=== PATIENT | female | born 2005 | race Caucasian/White ===

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

== ENCOUNTER 2024-02-04 23:23 | Emergency (ER) | payer OTHER, SELFPAY ==
[2024-02-04 23:26] VITALS: BP 135/90; PULSE 54; RESP 18; TEMP 36.6; O2SAT 98; BMI 22.5
--- OUTSIDE RECORDS SUMMARY | 2024-02-04 23:40 | XMS_ITS | CCD ---
Author Organization [facility] Care Team Providers Care Pipe Straightener Name Role Phone Manisha Montero Unavailable Asaad, Imad Unavailable Asaad, Imad Admitting Unavailable Asaad, Imad Attending Unavailable Manisha Montero Primary Care Unavailable WINSTON, DR MANISHA Craft Primary Care Unavailable GABRIELLE CANCHOLA Admitting Unavailable GABRIELLE CANCHOLA Attending Unavailable CHAN PETTIT Consulting Unavailable GABRIELLE CANCHOLA Consulting Unavailable WINSTON, DR MANISHA Craft Admitting Unavailable MONTERO, DR MANISHA Craft Attending Unavailable MONTERO, DR MANISHA Craft Primary Care Unavailable MONTERO, DR MANISHA Craft Admitting Unavailable MONTERO, DR MANISHA Craft Attending Unavailable MONTERO, DR MANISHA Craft Primary Care Unavailable MONTERO, DR MANISHA Craft Consulting Unavailable MONTERO, DR MANISHA Craft Admitting Unavailable MONTERO, DR MANISHA Craft Attending Unavailable MONTERO, DR MANISHA Craft Primary Care Unavailable MONTERO, DR MANISHA Craft Consulting Unavailable MONTERO, DR MANISHA Craft Admitting Unavailable MONTERO, DR MANISHA Craft Attending Unavailable MONTERO, DR MANISHA Craft Primary Care Unavailable Braulio Henriquez Consulting Unavailable MONTERO, DR MANISHA Craft Consulting Unavailable WINSTON, DR MANISHA Craft Primary Care Unavailable SADIA NEWBERRY Admitting Unavailable SADIA NEWBERRY Attending Unavailable SADIA NEWBERRY Consulting Unavailable JERSEY LOAIZA Consulting Unavailable WINSTON, DR MANISHA Craft Primary Care Unavailable KRIS Ford, DR SORENSEN Admitting Unavailable KRIS ., DR SORENSEN Attending Unavailable KRIS ., DR SORENSEN Consulting Unavailable AREN MCCOLLUM Consulting Unavailable WINSTON, DR MANISHA Craft Primary Care Unavailable KATIE SUÁREZ Admitting Unavailable KATIE SUÁREZ Attending Unavailable KATIE SUÁREZ Consulting Unavailable KIMBERLY CHOWDHURY Attending Unavailable Medications Current Medications Medication Drug Class(es) Dates Sig (Normalized) Sig (Original) 120 actuat fluticasone propionate 0.115 mg/actuat / salmeterol 0.021 mg/actuat metered dose inhaler (9 sources) Corticosteroid, beta2-Adrenergic Agonist take 2 puff(s) by inhalation once daily Advair HFA 115-21 MCG/ACT 2 puffs Inhalation daily for 30 days Active Advair HFA 230-2 1 MCG/ACT (Prior Auth#:[id number]) Inhalation for 30 Active methylPREDNISolone 4 mg oral tablet (1 source) Corticosteroid Start: 06-09-2023 methylPREDNISo lone 4 MG as directed Orally for 6 days May, Active polyethylene glycol 3350 [id number] mg / potassium chloride 2970 mg / sodium bicarbonate 6740 mg / sodium chloride 5860 mg / sodium sulfate 62178 mg powder for oral solution (2 sources) Osmotic Laxative Start: 02-10-2023 Golytely 236 GM 8oz every 15 minutes Orally at 4pm the day prior to colonoscopy for 1 days Jan, Active Problems Active Problems Problem Classification Problem Date Documented Da te Episodic/Chronic Abdominal pain (7 sources) Unspecified abdominal pain; Translations: [Right upper quadrant pain] Onset: 12-22-2022 Episodic Allergic reactions (1 source) Other allergy, initial encounter Episodic Asthma (9 sources) Asthma; Translations: [Unspecified asthma, uncomplicated] Chronic Cardiac dysrhythmias (3 sources) Irregular heart beat; Translations: [Cardiac arrhythmia, unspecified] Chronic Cardiac dysrhythmias (17 sources) Intermittent palpitations; Translations: [Palpitations] Onset: 11-15-2022 Episodic Diseases of mouth; excluding dental (9 sources) Other lesions of oral mucosa; Translations: [Uvular edema] Episodic Diverticulosis and diverticulitis (12 sources) Diverticulitis; Translations: [Diverticulitis of intestine, part unspecified, without perforation or abscess without bleeding] Onset: 12-24-2022 Chronic Nonmalignant breast conditions (5 sources) Mastodynia; Translations: [MASTODYNIA] Onset: 02-03-2023 Episodic Other aftercare (1 source) Encounter for follow-up examination after completed treatment for conditions other than malignant neoplasm; Translations: [Encounter for follow-up examination after completed treatment for conditions other than malignant neoplasm] Onset: 02-13-2023 Episodic Other gastrointestinal disorders (9 sources) Chronic constipation; Translations: [Other constipation] Episodic Other gastrointestinal disorders (1 source) Other constipation Episodic Other gastrointestinal disorders (6 sources) Constipation; Translations: [Constipation, unspecified] Episodic Other gastrointestinal disorders (6 sources) Constipation, unspecified; Translations: [CONSTIPATION UNSPECIFIED] Onset: 02-02-2023 Episodic Syncope (1 source) Syncope and collapse Episodic Unclassified (1 source) CONTACT W/AND (SUSP) EXPOS COVID-19; Translations: [CONTACT W/AND (SUSP) EXPOS COVID-19] Onset: 05-22-2022 Unclassified (1 source) UNVACCINATED FOR COVID-19; Translations: [UNVACCINATED FOR COVID-19] Onset: 05-22-2022 Past or Other Problems Problem Classification Problem Date Documented Date Episodic/Chronic Fever of unknown origin (4 sources) Fever, unspecified; Translations: [FEVER UNSPECIFIED] Onset: 05-21-2022 Episodic Fluid and electrolyte disorders (1 source) Hypokalemia; Translations: [HYPOKALEMIA] Onset: 05-22-2022 Episodic Noninfectious gastroenteritis (2 sources) Noninfective gastroenteritis and colitis, unspecified; Translations: [NONINFECTIVE GE AND COLITIS UNS] Onset: 12-24-2022 Episodic Other aftercare (1 source) Other snf (current) drug therapy; Translations: [OTH SENIOR LIVING CURRENT DRUG THERAPY] Onset: 12-24-2022 Episodic Other screening for suspected conditions (not mental disorders or infectious disease) (2 sources) Abnormal findings on diagnostic imaging of other abdominal regions, including retroperitoneum; Translations: [ABN FIND DX IMAG OTH AB REGION W/RP] Onset: 12-24-2022 Episodic Viral infection (1 source) Viral infection, unspecified; Translations: [VIRAL INFECTION UNSPECIFIED] Onset: 05-22-2022 Episodic Results Test Name Value Interpretation Reference Range Facility Office Visiton 12-22-2023 Follow-up visit [id number] Julio Black 2005 F Date Provider Department Center 12/22/2023 Almaz-KIMBERLY CHOWDHURY Family History Problem Relation Age of Onset Crohn's disease Father Family Status - Relation Status Age at Father Level of Service:45239 [place] OFFICE/OUTPATIENT NEW LOW MDM 30 MINUTES Normal [facility] CT ABD/PELVIS WO CONon 02-16 CT ABD/PELVIS WO CON EXAM: CT ABD/PELVIS WO CON REASON FOR EXAM: Female, 18 years, UNSPECIFIED ABDOMINAL PAIN. TECHNIQUE: Computed tomography of the abdomen and pelvis is performed in the axial projection from the lung bases to the pubic symphysis. Sagittal and coronal reconstructed images are performed. Dose reduction techniques were achieved by using automated exposure control and/or adjustment of mA and/or KVP according to patient size and/or use of iterative reconstruction technique. Study was performed without IV contrast. Study was performed without oral contrast. COMPARISON: 12/22/2022 FINDINGS: Lung bases: The lung bases are clear. There is no pleural effusion. The visualized portions of the heart are unremarkable. The lack of intravenous contrast slightly limits evaluation of the solid abdominal organs. Liver: The liver is normal. Gallbladder: The gallbladder is normal. Spleen: The spleen is normal. Pancreas: The pancreas is normal. Adrenal glands: The adrenal glands are normal bilaterally. Right kidney: The kidney is normal in size. There is no renal calculus or hydronephrosis. Left kidney: The kidney is normal in size. There is no renal calculus or hydronephrosis. Stomach: The stomach is normal. Small bowel: The small bowel is normal. Large bowel: There is stool throughout the colon consistent with constipation. The previously seen right colon wall thickening has resolved. Appendix: The appendix is not visualized. No right lower quadrant inflammatory changes are seen to suggest acute appendicitis. Aorta: The aorta is normal. IVC: The IVC is normal. Retroperitoneum: Normal retroperitoneum. Bladder: The bladder is normal. Pelvic organs: Normal uterus. Abdominal wall: Normal abdominal wall. Osseous structures: Normal bony structures. IMPRESSION: Constipation. No acute renal pathology. Electronically authenticated by: CHAN PETTIT Date: 2023-02-15 23:32 Normal [facility] HCG,Urineon 02-13-2023 Beta HCG ( test) Ql (U) Negative Normal [facility] Comment on above: Result Comment: PERF ORMED BY: [place] [address] PATHOLOGIST STONE SETTER APPRENTICE CLRAKE LARKIN M.D. Performed By: #### U HCG #### [address] US BREAST BASHIR LIMITEDon 03-2 US BREAST BASHIR LIMITED Patient: JULIO BLACK Exam Date: 02/03/2023 : 2005 Gender:F Ordering : DR MANISHA MONTERO M.D. Admission #: [id number] Family : Order #: [id number] CLICK HERE TO VIEW EXAM RADIOLOGY REPORT PROCEDURE: US BREAST BILATERAL LIMITED COMPARISON: None. INDICATIONS: Pain of breast TECHNIQUE: Breast ultrasound was performed, with evaluation focusing only on specific areas of concern. FINDINGS: DIAGNOSTIC CATEGORY 1--NEGATIVE. RIGHT BREAST: No significant suspicious finding. LEFT BREAST: No significant suspicious finding. RECOMMENDATIONS: CLINICAL EVALUATION. PLEASE NOTE: A NORMAL ULTRASOUND EXAMINATION DOES NOT EXCLUDE THE POSSIBILITY OF BREAST CANCER. A CLINICALLY SUSPICIOUS PALPABLE LUMP SHOULD BE BIOPSIED. Dictated by: Braulio Henriquez M.D. on 02/03/2023 at 15:46 Approved by: Braulio Henriquez M.D. on 02/03/2023 at 16:33 Normal [facility] CT ABD/PELV W CONon 12-23-19 CT ABD/PELV W CON EXAMINATION: CT ABD/PELV W CON HISTORY: Tenderness of right upper quadrant of abdomen and right flank pain. COMPARISON: CT abdomen pelvis 06/12/2021 TECHNIQUE: Isovue CT abdomen pelvis after administration of 100 mL Omnipaque 300 IV contrast. Coronal and sagittal reformats. Dose reduction techniques were achieved by using automated exposure control and/or adjustment of mA and/or kV according to patient size and/or use of iterative reconstruction technique. FINDINGS: Visualized lung bases and cardiac apex are unremarkable. Liver, gallbladder, pancreas, spleen, adrenal glands, kidneys, urinary bladder, and uterus are unremarkable. 1.6 cm left ovarian cystic structure, likely physiologic. Diffuse inflammatory stranding along the ascending colonic wall along multiple colonic diverticula. The inflammatory stranding extends to the appendix but the appendix is not dilated and is without appendicoliths. Minimal appendiceal wall thickening. Large amount of stool within the large bowel from the cecum to the descending colon. No evidence for small bowel obstruction, large ascites, or free air. Mild pelvic free fluid. No acute bony abnormality. IMPRESSION: Diffuse inflammatory stranding along the ascending colonic wall along multiple colonic diverticula. Finding reflects ascending colitis/diverticulitis . The inflammatory stranding extends to the appendix but the appendix is not dilated and is without appendicoliths. Minimal appendiceal wall thickening could reflect secondary inflammation from the primary colonic inflammation. Correlate clinically. Large amount of stool within the large bowel from the cecum to the descending colon. 1.6 cm left ovarian cystic structure, probably physiologic. Electronically authenticated by: AREN MCCOLLUM Date: 2022-12-22 22:43 Normal [facility] AMYLASEon 12-22-2022 Amylase [Catalytic activity/Vol] 49 U/L Normal 25-[address] [facility] Comment on above: Performed By: #### L IPA, JOHN, CMP ####[facility] [address] [place] [address]DrLiliana Bird CBC AUTO DIFFon 12-22-2022 BASO # 0.1 103/ul Normal 0.0-0.[address] [facility] Comment on above: Performed By: #### C BC ####[facility] [address] [place] [address]DrLiliana Bird Basophils/100 WBC (Bld) 0.7 % Normal 0.2-2.0 [facility] Comment on above: Performed By: #### C BC ####[facility] [address] [place], [place] [address]DrLiliana Bird EO # 0.9 103/ul Critically high 0.0-0.7 [facility] Comment on above: Performed By: #### C BC ####[facility] [address] [place], [place] [address]DrLiliana Bird Eosinophils/100 WBC (Bld) 8.4 % Critically high 0.9-7.0 [facility] Comment on above: Performed By: #### C BC ####[facility] Be[address] [place], [place] [address]DrLiliana Bird Erythrocyte distribution width (RBC) [Ratio] 13.8 % Normal 11.0-15.[address] [facility] Comment on above: Performed By: #### C BC ####[facility] [address] [place], [place] [address]DrLiliana Bird Hematocrit (Bld) [Volume fraction] 40.9 % Normal 36.0-48.[address] [facility] Comment on above: Performed By: #### C BC ####[facility] W[address] [place], [place] [address]DrLiliana Bird Hemoglobin (Bld) [Mass/Vol] 12.8 g/dL Normal 12.0-16.[address] [facility] Comment on above: Performed By: #### C BC ####[facility] [address] [place] [address]DrLiliana Bird IG # 0.02 10e3/ul Normal 0.00-0.[address] [facility] Comment on above: Performed By: #### C BC ####[facility] [address] [place], [place] [address]DrLiliana Bird IG % 0.2 % Normal 0.0-0.[address] [facility] Comment on above: Performed By: #### C BC ####[facility] [address] [place], [place] [address]DrLiliana Bird LYMPH # 3.3 103/ul Normal 1.2-3.[address] [facility] Comment on above: Performed By: #### C BC ####[facility] [address] [place], [place] [address]DrLiliana Bird Lymphocytes/100 WBC (Bld) 31.6 % Normal 20.5-60.[address] [facility] Comment on above: Performed By: #### C BC ####[facility] U[address] [place], [place] [address]DrLiliana Bird MANUAL DIFF REQ NO Normal [facility] Comment on above: Performed By: #### C BC ####[facility] [address] [place], [place] [address]DrLiliana Bird MCH (RBC) [Entitic mass] 27.8 pg Normal 26.7-34.[address] [facility] Comment on above: Performed By: #### C BC ####[facility] [address] [place], [place] [address]DrLilinaa Bird MCHC (RBC) [Mass/Vol] 31.3 g/dL Normal 29.9-35.[address] [facility] Comment on above: Performed By: #### C BC ####[facility] [address] [place], [place] [address]DrLiliana Bird MCV (RBC) [Entitic vol] 88.9 fL Normal 81.0-99.[address] [facility] Comment on above: Performed By: #### C BC ####[facility] [address] [place], [place] [address]Dr. Ronald Bird MONO # 1.0 103/ul Critically high 0.3-0.8 [facility] Comment on above: Performed By: #### C BC ####[facility] Mg[address] [place], [place] [address]Dr. Amandazunilda Bird Monocytes/100 WBC (Bld) 9.5 % Normal 1.7-12.[address] [facility] Comment on above: Performed By: #### C BC ####[facility] [address] [place], [place] [address]Dr. Ronald Bird NEUT # 5.1 103/ul Normal 1.4-6.[address] [facility] Comment on above: Performed By: #### C BC ####[facility] [address] [place], [place] [address]Dr. Amandazunilda Bird Neutrophils/100 WBC (Bld) 49.6 % Normal 43.0-75.[address] [facility] Comment on above: Performed By: #### C BC ####[facility] [address] [place], [place] [address]Dr. Ronald Pelon Platelet mean volume (Bld) [Entitic vol] 10.4 fL Normal 9.5-13.[address] [facility] Comment on above: Performed By: #### C BC ####[facility] [address] [place], [place] [address]Dr. Ronald Pelon PLT 269 103/ul Normal 150-[address] [facility] Comment on above: Performed By: #### C BC ####[facility] [address] [place], [place] [address]Dr. Ronald Bird RBC 4.60 106/ul Normal 4.20-5.[address] [facility] Comment on above: Performed By: #### C BC ####[facility] [address] [place], [place] [address]Dr. Ronald Bird WBC 10.3 103/ul Normal 4.0-11.0 [facility] Comment on above: Performed By: #### C BC ####[facility] [address] [place] [address]Dr. Ronald Bird ER URINE PROFILEon 3 Bilirubin Ql (U) Negative Normal NEGATIVE [facility] Comment on above: Performed By: #### E RUR #### [facility] [address] [place] [address] Dr. Ronald Bird Clarity (U) CLEAR Normal CLEAR [facility] Comment on above: Performed By: #### E RUR #### [facility] [address] [place] [address] Dr. Ronald Bird Color (U) YELLOW Normal YELLOW [facility] Comment on above: Performed By: #### E RUR #### [facility] [address] [place] [address] Dr. Ronald ANDERSON A micrscopic examination will be performed if indicated. Normal [facility] Comment on above: Performed By: #### E RUR #### [facility] [address] [place] [address] Dr. Ronald Bird Glucose Ql (U) Negative Normal NEGATIVE [facility] Comment on above: Performed By: #### E RUR #### [facility] [address] [place] [address] Dr. Ronald Bird Hemoglobin Ql (U) Negative Normal NEGATIVE [facility] Comment on above: Performed By: #### E RUR #### [facility] [address] [place] [address] Dr. Ronald Bird Ketones Ql (U) Negative Normal NEGATIVE The [facility] Comment on above: Performed By: #### E RUR #### [facility] [address] [place] [address] Dr. Ronald Bird LEUKOCYTES Negative Normal NEGATIVE [facility] Comment on above: Performed By: #### E RUR #### [facility] [address] [place] [address] Dr. Ronald Bird Nitrite Ql (U) Negative Normal NEGATIVE [facility] Comment on above: Performed By: #### E RUR #### [facility] [address] [address] [address] Ronald Bird pH (U) 7.0 [pH] Normal 5-9 [facility] Comment on above: Performed By: #### E RUR #### [facility] [address] [address] [address] Ronald Bird SPEC GRAVITY 1.020 Normal 1.005-<=1.025 [facility] Comment on above: Performed By: #### E RUR #### [facility] [address] [address] [address] Ronald Bird UA PROTEIN Negative Normal NEGATIVE/ TRACE [facility] Comment on above: Performed By: #### E RUR #### [facility] [address] [place] [address] Dr. Ronald Bird UR MICRO IND NOT INDICATED Normal [facility] Comment on above: Performed By: #### E RUR #### [facility] [address] [place] [address] Dr. Ronald Bird Urobilinogen Qn (U) 1.0 {Reese'U}/dL Normal 0.2 - 1.0 [facility] Comment on above: Performed By: #### E RUR #### [facility] [address] [place] [address] Dr. Ronald Bird LIPASEon 12-22-2022 Lipase [Catalytic activity/Vol] 76.0 U/L Normal 73.0-393.0 [facility] Comment on above: Performed By: #### L JOHN WISDOM, CMP ####[facility] [address] [place] [address]Dr. Ronald Bird PROF 14(COMP METB)on 023 Albumin [Mass/Vol] 4.3 g/dL Normal 3.4-5.0 [facility] Comment on above: Performed By: #### L JOHN WISDOM, CMP #### [facility] [address] [address] [address] Ronald Bird Albumin/Globulin [Mass ratio] 1.2 {ratio} Normal [facility] Comment on above: Performed By: #### L IPA, JOHN, CMP #### [facility] [address] [address] [address] Ronald Bird ALP [Catalytic activity/Vol] 80 U/L Normal 46-116 [facility] Comment on above: Performed By: #### L IPA, JOHN, CMP #### [facility] [address] [address] [address] Ronald Bird ALT [Catalytic activity/Vol] 15 U/L Normal 14-59 [facility] Comment on above: Performed By: #### L IPA, JOHN, CMP #### [facility] [address] [address] [address] Ronald Bird Anion gap [Moles/Vol] 15.1 mmol/L Normal [facility] Comment on above: Performed By: #### L IPA, JOHN, CMP #### [facility] [address] [address] [address] Ronald Bird AST [Catalytic activity/Vol] 18 U/L Normal 15-37 [facility] Comment on above: Performed By: #### L IPA JOHN, CMP #### [facility] [address] [address] [address] Ronald Bird Bilirubin [Mass/Vol] 0.2 mg/dL Normal 0.2-1.0 [facility] Comment on above: Performed By: #### L IPA, JOHN, CMP #### [facility] [address] [address] [address] Ronald Bird Calcium [Mass/Vol] 9.5 mg/dL Normal 8.5-10.1 [facility] Comment on above: Performed By: #### L IPA, JOHN, CMP #### [facility] [address] [address] [address] Ronald Bird Chloride [Moles/Vol] 99 mmol/L Normal 98-107 [facility] Comment on above: Performed By: #### L IPA, JOHN, CMP #### [facility] [address] [address] [address] Ronald Bird CO2 [Moles/Vol] 28.4 mmol/L Normal 21.0-32.0 [facility] Comment on above: Performed By: #### L JOHN WISDOM, CMP #### [facility] [address] [address] [address] Ronald Bird Creatinine [Mass/Vol] 0.63 mg/dL Normal 0.55-1.02 [facility] Comment on above: Performed By: #### L ARTIS JOHN, CMP #### [facility] [address] [address] [address] Ronald Bird EGFR-AF ALBANIAN >60 Normal >=[address] [facility] Comment on above: Performed By: #### L JOHN WISDOM, CMP #### [facility] [address] [address] [address] Ronald Bird EGFR-NON AF ALBANIAN >60 Normal >=60 [facility] Comment on above: Performed By: #### L JOHN WISDOM, CMP #### [facility] [address] [address] [address] Ronald Bird Globulin (S) [Mass/Vol] 3.6 g/dL Normal [facility] Comment on above: Performed By: #### L JOHN WISDOM, CMP #### [facility] [address] [address] [address] Ronald Bird Glucose [Mass/Vol] 100 mg/dL Normal 74-106 [facility] Comment on above: Performed By: #### L JOHN WISDOM, CMP #### [facility] [facility] [address] [address] [address] Ronald Bird Potassium [Moles/Vol] 3.5 mmol/L Normal 3.5-5.[address] [facility] Comment on above: Performed By: #### L JOHN WISDOM, CMP #### [facility] [address] [place] [address] Dr. Ronald Bird Protein [Mass/Vol] 7.9 g/dL Normal 6.4-8.2 The [facility] Comment on above: Performed By: #### L JOHN WISDOM, CMP #### [facility] [address] [address] [address] Ronald Bird Sodium [Moles/Vol] 139 mmol/L Normal 136-145 [facility] Comment on above: Performed By: #### L JOHN WISDOM, CMP #### [facility] [address] [place], [place] [address] Dr. Ronald Bird Urea nitrogen [Mass/Vol] 7.0 mg/dL Normal 6.4-19.3 [facility] Comment on above: Performed By: #### L JOHN WISDOM, CMP #### [facility] [address], [place] [address] Dr. Ronald Bird Urea nitrogen/Creatinin e [Mass ratio] 11.1 mg/mg Normal [facility] Comment on above: Performed By: #### L JOHN WISDOM, CMP #### [facility] [address], [place] [address] Dr. Ronald Bird ECHOCARDIO M/2D COMPLETEon 1 ECHOCARDIO M/2D COMPLETE Patient: JULIO BLACKLiliana Exam Date: 11/15/2022 : 2005 Gender:F Ordering : DR MANISHA MONTERO M.D. Admission #: [id number] Family : Order #: [id number] CLICK HERE TO VIEW EXAM ECHOCARDIOGRAM REPORT PROCEDURE: CARDIO PULMONARY ECHOCARDIO M/2D COMP INDICATIONS: Palpitations COMPARISON: None. DESCRIPTION: COMPLETE ECHOCARDIOGRAM Real-time transthoracic echocardiography with 2D, M-mode, spectral and color flow Doppler performed. QUALITY: Technical quality was good. 65 135# BP 114/60 LEFT VENTRICLE: Normal chamber size. Normal left ventricular wall thickness. Global left ventricular systolic function is normal. LV EF: Normal left ventricular ejection fraction, (>55%). DIASTOLIC: Normal diastolic function. ATRIAL SEPTUM: Visually appears intact. LEFT ATRIUM: Normal chamber size. RIGHT ATRIUM: Normal chamber size. RIGHT VENTRICLE: Normal chamber size. Normal right ventricular systolic function. TRICUSPID VALVE: Normal mobility and thickness. No regurgitation. Unable to assess right-sided pressures due to lack of measurable tricuspid regurgitation. MITRAL VALVE: Normal mobility and thickness. No mitral valve prolapse. No mitral regurgitation. AORTIC VALVE: Normal trileaflet appearance. Normal leaflet mobility. No aortic regurgitation. AORTIC ROOT: Normal diameter and appearance. PULMONIC VALVE: Normal thickness and mobility. Trivial regurgitation. PERICARDIUM: No evidence of pericardial effusion. IVC: Collapses with inspirations. CONCLUSION: Global left ventricular systolic function is normal; visually estimated ejection fraction is 55 to 60%. No significant wall motion abnormalities. Normal diastolic function. The right ventricle is normal in size and systolic function. No significant valvular abnormalities. Adult Echocardiography Procedure Report Left Ventricle LVEDD (3.7 - 5.6 cm): 4.87 cm LVESD (2.2 - 4.0 cm): 3.33 cm LVIVS thickness (0.6 - 1.2 cm): 0.62 cm LVPW thickness (0.5 - 1.0 cm): 0.69 cm e': 0.19 m/s E - e': 4.02 LVOT Max Gradient: 5.02 mm[Hg] Peak Velocity (LVOT): 1.12 m/s Mean Velocity (LVOT): 0.77 m/s LVOT Diameter 2.23 cm Left Ventricular Ejection Fraction: 59.60 %, 59.60 % Left Atrium LA Volume Index (2D A2C): 61.29 ml, 61.29 ml Left Atrium Systolic Dimension: 2.70 cm Mitral Valve MV E to A Ratio: 1.86 Mitral Valve A-Wave Peak Velocity: 0.41 m/s Mitral Valve E-Wave Peak Velocity: 0.76 m/s Right Ventricle Aorta AO Root Diam: 2.70 cm Aortic Valve AoV Area (Peak Martínez): 3.94 cm2, 3.94 cm2 Peak Velocity(Antegrade Flow): 1.11 m/s Peak Gradient(Antegrade Flow): 4.91 mm[Hg] Tricuspid Valve Pulmonic Valve Peak Velocity: 0.86 m/s, 0.96 m/s Peak Gradient: 2.96 mm[Hg], 3.67 mm[Hg] Right Atrium Right Atrium Systolic Pressure: 51.99 ml, 51.99 ml Dictated by: Elina Helms M.D. on 11/19/2022 at 10:35 Approved by: Elina Helms M.D. on 11/19/2022 at 10:38 Normal [address] [facility] AMYLASEon 05-21-2022 Amylase [Catalytic activity/Vol] 45 U/L Normal 25-[address] [facility] Comment on above: Performed By: #### C JOHN RIOS LIPA #### [facility] [address] [place], [place] [address] Dr. Ronald Bird CBC AUTO DIFFon 05-21-2022 BASO # 0.0 103/ul Normal 0.0-0.1 [facility] Comment on above: Performed By: #### C BC ####[facility] [address] [id number] Bird Basophils/100 WBC (Bld) 0.2 % Normal 0.2-2.0 [facility] Comment on above: Performed By: #### C BC ####[facility] [address] [address]DrLiliana Bird EO # 0.2 103/ul Normal 0.0-0.[address] [facility] Comment on above: Performed By: #### C BC ####[facility] [address] [address]DrLiliana Bird Eosinophils/100 WBC (Bld) 1.2 % Normal 0.9-7.0 [facility] Comment on above: Performed By: #### C BC ####[facility] [address] [address]DrLiliana Bird Erythrocyte distribution width (RBC) [Ratio] 12.8 % Normal 11.0-15.[address] [facility] Comment on above: Performed By: #### C BC ####[facility] [address] [address]DrLiliana Bird Hematocrit (Bld) [Volume fraction] 39.0 % Normal 36.0-48.0 [facility] Comment on above: Performed By: #### C BC ####[facility] [address] [id number] Bird Hemoglobin (Bld) [Mass/Vol] 13.1 g/dL Normal 12.0-16.[address] [facility] Comment on above: Performed By: #### C BC ####[facility] [address] [id number] Bird IG # 0.07 10e3/ul Critically high 0.00-0.03 [facility] Comment on above: Performed By: #### C BC ####[facility] [address] [id number]. Amandazunilda Bird IG % 0.4 % Normal 0.0-0.5 [facility] Comment on above: Performed By: #### C BC ####[facility] [address] [id number] Amandazunilda Bird LYMPH # 0.6 103/ul Critically low 1.2-3.8 [facility] Comment on above: Performed By: #### C BC ####[facility] [address] [id number]. Amandazunilda Bird Lymphocytes/100 WBC (Bld) 3.6 % Critically low 20.5-60.0 [facility] Comment on above: Performed By: #### C BC ####[facility] [address] [address]Dr. Ronald Bird MANUAL DIFF REQ NO Normal [facility] Comment on above: Performed By: #### C BC ####[facility] [address] [id number]. Amandazunilda Bird MCH (RBC) [Entitic mass] 29.1 pg Normal 26.7-34.0 [facility] Comment on above: Performed By: #### C BC ####[facility] [address] [id number]. Amandazunilda Bird MCHC (RBC) [Mass/Vol] 33.6 g/dL Normal 29.9-35.[address] [facility] Comment on above: Performed By: #### C BC ####[facility] [address] [id number] Bird MCV (RBC) [Entitic vol] 86.7 fL Normal 81.0-99.0 [facility] Comment on above: Performed By: #### C BC ####[facility] [address] [id number] Bird MONO # 0.9 103/ul Critically high 0.3-0.8 [facility] Comment on above: Performed By: #### C BC ####[facility] [address] [id number]. Ronald Bird Monocytes/100 WBC (Bld) 5.3 % Normal 1.7-12.[address] [facility] Comment on above: Performed By: #### C BC ####[facility] [address] [id number]. Ronald Bird NEUT # 15.7 103/ul Critically high 1.4-6.[address] [facility] Comment on above: Performed By: #### C BC ####[facility] [address] [phone]. Ronald Bird Neutrophils/100 WBC (Bld) 89.3 % Critically high 43.0-75.[address] [facility] Comment on above: Performed By: #### C BC ####[facility] [address] [address]Dr. Ronald Bird Platelet mean volume (Bld) [Entitic vol] 10.4 fL Normal 9.5-13.5 [facility] Comment on above: Performed By: #### C BC ####[facility] [address] [id number]. Ronald Bird PLT 208 103/ul Normal 150-[address] [facility] Comment on above: Performed By: #### C BC ####[facility] [address] [id number]. Ronald Bird RBC 4.50 106/ul Normal 4.20-5.[address] [facility] Comment on above: Performed By: #### C BC ####[facility] [address] [id number]. Ronald Bird WBC 17.5 103/ul Critically high 4.0-11.[address] [facility] Comment on above: Performed By: #### C BC ####[facility] [address] [id number]. Ronald Bird [facility]on SARS-CoV-2 (COVID-19) RNA TERRY+probe Ql (Unsp spec) Not detected Normal NOT DETECTED The [facility] Comment on above: Result Comment: When diagnostic testing is negative, the possibility of a false negative should be considered in the context of a patient's recent exposures and the presence of clinical signs and symptoms consistent with SARS-CoV-2. This test is not yet approved or cleared by the [place] FDA. When there are no FDA-approved or cleared tests available, and other criteria are met, FDA can make tests available under an emergency access mechanism called an Emergency Use Authorization (EUA). The EUA for this test is supported by the Dry End Tester of Health and Human Service's declaration that circumstances exist to justify the emergency use of in vitro diagnostics for the detection and/or diagnosis of the virus that causes COVID-19. This EUA will remain in effect for the duration of the COVID-19 declaration justifying emergency of IVDs, unless it is terminated or revoked by the FDA (after which the test may no longer be used). Performed By: #### C VDTB #### [facility] [address] [address] [address] Ronald Bird ER URINE PROFILEon 2 Bilirubin Ql (U) Negative Normal NEGATIVE [facility] Comment on above: Performed By: #### E RUR ####[facility] [address] [place], [place] [address]DrLiliana Bird Clarity (U) CLEAR Normal CLEAR [facility] Comment on above: Performed By: #### E RUR ####[facility] [address] [place], [place] [address]DrLiliana Bird Color (U) LT. YELLOW Normal YELLOW The [facility] Comment on above: Performed By: #### E RUR ####[facility] [address] [address]Dr. Ronald Bird ERUAHD A micrscopic examination will be performed if indicated. Normal The [facility] Comment on above: Performed By: #### E RUR ####[facility] [address] [address]DrLiliana Bird Glucose Ql (U) Negative Normal NEGATIVE The [facility] Comment on above: Performed By: #### E RUR ####[facility] [address] [address]Dr. Ronald Bird Hemoglobin Ql (U) Negative Normal NEGATIVE [facility] Comment on above: Performed By: #### E RUR ####[facility] [address] [place], [place] [address]Dr. Ronald Pelon Ketones Ql (U) Negative Normal NEGATIVE The [facility] Comment on above: Performed By: #### E RUR ####[facility] [address] [place], [place] [address]Dr. Ronald Pelon LEUKOCYTES Negative Normal NEGATIVE [facility] Comment on above: Performed By: #### E RUR ####[facility] [address] [place], [place] [address]Dr. Ronald Pelon Nitrite Ql (U) Negative Normal NEGATIVE The [facility] Comment on above: Performed By: #### E RUR ####[facility] [address] [place], [place] [address]Dr. Amandazunilda Pelon pH (U) 7.0 [pH] Normal 5-[address] [facility] Comment on above: Performed By: #### E RUR ####[facility] [address] [place], [place] [address]Dr. Amandazunilda Pelon SPEC GRAVITY <=1.005 Abnormal 1.005-<=1.025 [facility] Comment on above: Performed By: #### E RUR ####[facility] [address] [place], [place] [address]Dr. Amandazunilda Pelon UA PROTEIN Negative Normal NEGATIVE/ TRACE The [facility] Comment on above: Performed By: #### E RUR ####[facility] [address] [place], [place] [address]Dr. Ronald Bird UR MICRO IND NOT INDICATED Normal [facility] Comment on above: Performed By: #### E RUR ####[facility] [address] [place], [place] [address]Dr. Ronald Bird Urobilinogen Qn (U) 0.2 {Reese'U}/dL Normal 0.2 - 1.[address] [facility] Comment on above: Performed By: #### E RUR ####[facility] [address] [place], [place] [address]Dr. Ronald Bird GROUP A STREP CULTUREon S. pyogenes Ag Ql (Unsp spec) Culture Observations: NEGATIVE FOR GROUP A STREPTOCOCCUS. Normal The [facility] Comment on above: Performed By: #### S SCRN, GRASTCX ####[facility] [address] [place], [place] [address]Dr. Ronald Bird INFLUENZA A AND B AGon 05-21 INFLUENZA A AG Negative Normal NEGATIVE SEE COMMENT The [facility] Comment on above: Performed By: #### I NFLUAB ####[facility] [address] [place], [place] [address]Dr. Ronald [facility] INFLUENZA B AG Negative Normal NEGATIVE SEE COMMENT The [facility] Comment on above: Performed By: #### I NFLUAB ####[facility] [address] [place], [place] [address]Dr. Ronald Bird INFLUPOSH SEE BELOW Normal The [facility] Comment on above: Result Comment: NOTE : Live attenuated influenzae vaccine viruses can cause a positive result for a rapid influenza diagnostic test if administered up to 7 days prior to rapid testing. Performed By: #### I NFLUAB ####[facility] [address] [place], [place] [address]Dr. Ronald Bird INFLUPOSHB SEE BELOW Normal The [facility] Comment on above: Result Comment: NOTE : Live attenuated influenzae vaccine viruses can cause a positive result for a rapid influenza diagnostic test if administered up to 7 days prior to rapid testing. Performed By: #### I NFLUAB ####[facility] [address] [place], [place] [address]Dr. Ronald Bird INTERNAL CONTROLS Within Normal Limits Normal Wi thin Normal Limits The [facility] Comment on above: Performed By: #### I NFLUAB ####[facility] [address] [place], [place] [address]Dr. Ronald Bird LIPASEon 05-21-2022 Lipase [Catalytic activity/Vol] 62.0 U/L Critically low 73.0-393.0 The [facility] Comment on above: Performed By: #### C JOHN RIOS, LIPA #### [facility] [address] [place] [address] Dr. Ronald Bird PROF 14(COMP METB)on 022 Albumin [Mass/Vol] 4.1 g/dL Normal 3.4-5.0 [facility] Comment on above: Performed By: #### C JOHN RIOS LIPA #### [facility] [address] [place] [address] Dr. Ronald Bird Albumin/Globulin [Mass ratio] 1.2 {ratio} Normal [facility] Comment on above: Performed By: #### C JOHN RIOS LIPA #### [facility] [address] [place] [address] Dr. Ronald Bird ALP [Catalytic activity/Vol] 74 U/L Normal 46-116 [facility] Comment on above: Performed By: #### C JOHN RIOS LIPA #### [facility] [address] [place] [address] Dr. Ronald Bird ALT [Catalytic activity/Vol] 60 U/L Critically high 14-59 [facility] Comment on above: Performed By: #### C JOHN RIOS LIPA #### [facility] [address] [place] [address] Dr. Ronald Bird Anion gap [Moles/Vol] 13.4 mmol/L Normal [facility] Comment on above: Performed By: #### C JOHN RIOS LIPA #### [facility] [address] [place] [address] Dr. Ronald Bird AST [Catalytic activity/Vol] 46 U/L Critically high 15-37 [facility] Comment on above: Performed By: #### C JOHN RIOS LIPA #### [facility] [address] [place] [address] Dr. Ronald Bird Bilirubin [Mass/Vol] 0.6 mg/dL Normal 0.2-1.0 [facility] Comment on above: Performed By: #### C JOHN RIOS LIPA #### [facility] [address] [place] [address] Dr. Ronald Bird Calcium [Mass/Vol] 9.3 mg/dL Normal 8.5-10.1 [facility] Comment on above: Performed By: #### C JOHN RIOS, LIPA #### [facility] [address] [place] [address] Dr. Ronald Bird Chloride [Moles/Vol] 100 mmol/L Normal 98-107 [facility] Comment on above: Performed By: #### C GABRIEL JOHN, LIPA #### [facility] [address] [place] [address] Dr. Ronald Bird CO2 [Moles/Vol] 24.9 mmol/L Normal 21.0-32.0 [facility] Comment on above: Performed By: #### C GABRIEL JOHN, LIPA #### [facility] [address] [place] [address] Dr. Ronald Bird Creatinine [Mass/Vol] 0.71 mg/dL Normal 0.55-1.02 [facility] Comment on above: Performed By: #### C GABRIEL JOHN, LIPA #### [facility] [address] [place] [address] Dr. Ronald Bird EGFR-AF ALBANIAN >60 Normal >=60 [facility] Comment on above: Performed By: #### C JOHN RIOS, LIPA #### [facility] [address] [place] [address] Dr. Ronald Bird EGFR-NON AF ALBANIAN >60 Normal >=60 [facility] Comment on above: Performed By: #### C GABRIEL JOHN, LIPA #### [facility] [address] [place] [address] Dr. Ronald Bird Globulin (S) [Mass/Vol] 3.5 g/dL Normal [facility] Comment on above: Performed By: #### C JOHN RIOS, LIPA #### [facility] [address] [place] [address] Dr. Ronald Bird Glucose [Mass/Vol] 109 mg/dL Critically high 74-106 T [facility] Comment on above: Performed By: #### C JOHN RIOS, LIPA #### [facility] [address] [address] [address] Ronald Bird Potassium [Moles/Vol] 3.3 mmol/L Critically low 3.5-5.1 [facility] Comment on above: Performed By: #### C MP, JOHN, LIPA #### [facility] [address] [address] [address] Ronald Bird Protein [Mass/Vol] 7.6 g/dL Normal 6.4-8.2 [facility] Comment on above: Performed By: #### C GABRIEL JOHN, LIPA #### [facility] [address] [address] [address] Ronald Bird Sodium [Moles/Vol] 135 mmol/L Critically low 136-145 [facility] Comment on above: Performed By: #### C GABRIEL JOHN, LIPA #### [facility] [address] [place] [address] Dr. Ronald Bird Urea nitrogen [Mass/Vol] 7.0 mg/dL Normal 6.4-19.3 [facility] Comment on above: Performed By: #### C JOHN RIOS, LIPA #### [facility] [address] [place] [address] Dr. Ronald Bird Urea nitrogen/Creatinin e [Mass ratio] 9.9 mg/mg Normal [facility] Comment on above: Performed By: #### C GABRIEL JOHN, LIPA #### [facility] [address] [place] [address] Dr. Ronald Bird STREPT SCREENon 05-21-2022 STREP SCREEN A Negative Normal NEGATIVE [facility] Comment on above: Performed By: #### S SCRN, GRASTCX ####[facility] [address] [address]Dr. Ronald Bird XR CHEST 2 Von 05-21-2022 XR CHEST 2 V EXAM: XR CHEST 2 V HISTORY: COUGH COMPARISON: Chest radiographs dated 02/14/2014. TECHNIQUE: 2 views of the chest were obtained. FINDINGS: The cardiac silhouette is normal in size. The lungs are clear. There is no significant pneumothorax or pleural effusion. No acute osseous abnormality is seen. IMPRESSION: 1. No acute cardiopulmonary abnormality. Electronically authenticated by: Gerardo LOAIZA Date: 2022-05-21 02:49 Normal [facility] Vital Signs Date Time Vital Sign Value Performing Clinician Facility 11-27-2023 15:15-0500 Body height 165.1 cm Manisha Montero Other [facility] Other 11-27-2023 15:15-0500 Body mass index (BMI) [Ratio] 23.29 kg/m2 Manisha Montero Other [facility] Other 11-27-2023 15:15-0500 Body weight 63.5 kg Manisha Montero Other [facility] Other 11-27-2023 15:15-0500 Diastolic blood pressure 81 mm[Hg] Manisha Montero Other [facility] Other 11-27-2023 15:15-0500 Systolic blood pressure 131 mm[Hg] Manisha Montero Other [facility] Other 07-22-2023 15:45-0400 Body height 165.1 cm Manisha Montero Other [facility] Other 07-22-2023 15:45-0400 Body mass index (BMI) [Ratio] 23.39 kg/m2 Manisha Montero Other [facility] Other 07-22-2023 15:45-0400 Body weight 63.78 kg Manisha Montero Other [facility] Other 07-22-2023 15:45-0400 Diastolic blood pressure 71 mm[Hg] Manisha Montero Other [facility] Other 07-22-2023 15:45-0400 Systolic blood pressure 109 mm[Hg] Manisha Montero Other [facility] Other 02-10-2023 16:00-0400 Body height 165.1 cm Imad Asaad Other [facility] Other 02-10-2023 16:00-0400 Body mass index (BMI) [Ratio] 22.46 kg/m2 Imad Asaad Other [facility] Other 02-10-2023 16:00-0400 Body weight 61.24 kg Imad Asaad Other [facility] Other 02-10-2023 16:00-0400 Diastolic blood pressure 78 mm[Hg] Imad Asaad Other [facility] Other 02-10-2023 16:00-0400 Systolic blood pressure 132 mm[Hg] Imad Asaad Other [facility] Other 01-03-2023 11:00-0500 Body height 165.1 cm Manisha Montero Other [facility] Other 01-03-2023 11:00-0500 Body mass index (BMI) [Ratio] 22.46 kg/m2 Manisha Montero Other [facility] Other 01-03-2023 11:00-0500 Body weight 61.24 kg Manisha Montero Other [facility] Other 01-03-2023 11:00-0500 Diastolic blood pressure 66 mm[Hg] Manisha Montero Other [facility] Other 01-03-2023 11:00-0500 SaO2% (BldA) [Mass fraction] 99 % Manisha Montero Other [facility] Other 01-03-2023 11:00-0500 Systolic blood pressure 118 mm[Hg] Manisha Montero Other [facility] Other Encounters Encounter Date Encounter Type Care Provider Facility Start: 12-22-2023 End: 12-22-2023 ambulatory [facility] Start: 11-28-2023 End: 11-28-2023 ambulatory Manisha Montero Other [facility] Other Start: 11-28-2023 Telephone encounter Manisha Montero [facility] Start: 11-27-2023 End: 11-27-2023 ambulatory Manisha Montero Other [facility] Other Start: 11-27-2023 Office outpatient visit 15 minutes Manisha Montero [facility] Start: 07-22-2023 End: 07-22-2023 ambulatory Manisha Montero Other [facility] Other Start: 07-22-2023 Office outpatient visit 15 minutes Manisha Montero [facility] Start: 06-12-2023 End: 06-12-2023 ambulatory Manisha Montero Other [facility] Other Start: 06-12-2023 Telephone encounter Manisha Montero [facility] Start: 02-16-2023 End: 02-16-[address] MANISHA MONTERO Facility: Start: 02-13-2023 End: 02-13-2023 ambulatory Imad Asaad Facility:[facility] Start: 02-11-2023 End: 02-11-2023 ambulatory Imad Asaad Other [facility] Other Start: 02-11-2023 Telephone encounter Imad Asaad [facility] Start: 02-10-2023 End: 02-10-2023 ambulatory Imad Asaad Other [facility] Other Start: 02-10-2023 Office outpatient ne w 45 minutes Imad Alec [facility] G[facility] Start: 02-04-2023 End: 02-04-2023 ambulatory Manisha Montero Other [facility] Other Start: 02-04-2023 Telephone encounter Manisha Montero [facility] Start: 02-03-2023 End: 02-04-[address] MANISHA MONTERO Facility:[facility] Start: 02-02-2023 End: 02-02-[address] MANISHA MONTERO Facility:[facility] Start: 01-31-[address] MANISHA MONTERO Facil ity:[facility] Start: 01-03-2023 End: 01-03-2023 ambulatory Manisha Montero Other [facility] Other Start: 01-03-2023 Office outpatient visit 15 minutes Manisha Montero [facility] Start: 12-22-2022 End: 12-23-[address] MANISHA MONTERO Facility:[facility] Start: 11-22-2022 End: 11-22-2022 ambulatory Manisha Montero Other [facility] Other Start: 11-22-2022 Telephone encounter Manisha Montero [facility] Start: 11-15-2022 End: 11-16-[address] MANISHA MONTERO Facility:[facility] Start: 08-01-2022 End: 08-02-[address] MANISHA MONTERO Facility:[facility] Start: 05-21-2022 End: 05-21-[address] MANISHA MONTERO Facility:[facility] Payers Date Payer Category Payer Unknown [id number] 2004 Unknown [id number] 2.16.84 [id number] 2004 Unknown [id number] 2004 Unknown [id number] 2.16.84 [id number] 2004 Unknown [id number] 2.16.84 [id number] 2004 Unknown [id number] 2.16.84 [id number] 2004 Unknown [id number] 2.16.84 [id number] 2004 Unknown [id number] 2.16.84 [id number] 2004 Unknown [id number] 2.16.84 [id number] 1960 Self-pay 1959 Unknown [id number] 1959 Unknown [id number] Unknown [id number] 2.16.8 [id number] Social History Date Type Detail Facility Unknown if ever smoked [facility] Other Sex Assigned At Sex Assigned At Bir th [facility] Other Progress note 12-22-2023 Note Date & Type Note Facility 12-22-2023 Note [facility] Consult Note Reason for visit: palpitations, tachycardia HPI: Julio Black is a 18 y.o. year old with past medical history of palpitations, asthma. She has a longstanding history of palpitations since childhood It does cause symptoms of anxiety and lightheadedness She has not had her thyroid evaluated ECG 2.5.24 SR with incomplete RBBB Echo 10/2022 unremarkable Holter 07/2022 PMH: Past Medical History: Diagnosis Date Asthma Diverticulosis PSH: No past surgical history on file. SH: Social Determinants of Health Tobacco Use: Low Risk (12/22/2023) Patient History Smoking Tobacco Use: Never Smokeless Tobacco Use: Never Passive Exposure: Not on file Alcohol Use: Not on file Financial Resource Strain: Not on file Food Insecurity: Not on file Transportation Needs: Not on file Physical Activity: Not on file Stress: Not on file Social Connections: Not on file Intimate Partner Violence: Not on file Depression: Not on file Housing Stability: Not on file Utilities: Not on file Allergies: No Known Allergies Weight: 54.9kg Visit Vitals BP 127/82 (BP Location: Left arm, Patient Position: Sitting) Pulse 67 Ht 1.651 m (5' 5 ) Wt 54.9 kg (121 lb) SpO2 96% BMI 20.14 kg/m??? Smoking Status Never BSA 1.59 m??? Meds: Current Outpatient Medications on File Prior to Visit Medication Sig Dispense Refill fluticasone propion-salmeteroL (Advair) 230-21 mcg/actuation inhaler 2 puffs. No current facility-administered medications on file prior to visit. ROS: Cardio Basic Cardiovascular Symptoms: no lightheadedness, no leg edema, no syncope, no orthopnea, no PND, no claudication, Constitutional Constitutional: no fever, no night sweats, no significant weight gain, no significant weight loss, no exercise intolerance Eyes Eyes: no dry eyes, no irritation, no vision change ENMT Ears: no difficulty hearing, no ear pain Nose: no frequent nosebleeds, Mouth/Throat: no sore throat, no bleeding gums, no snoring, no dry mouth, no mouth ulcers, no oral abnormalities, no teeth problems Respiratory Respiratory: no cough, no wheezing, no coughing up blood, no sleep apnea Musculoskeletal Musculoskeletal: no muscle aches, no muscle weakness, joint pain+, no back pain, no swelling in the extremities Integumentary Skin no rash, no ulcer, no varicosities, no discoloration, no pruritus Neurologic Neurologic: no loss of consciousness, no weakness, no numbness, no seizures, no dizziness, no headaches Psychiatric Psych: no depression, feeling safe in relationship, no alcohol abuse, Hematologic/Lymphatic Hematologic/Lymphatic no swollen glands, no bruising Physical Exam: Constitutional General Appearance: well-nourished, well-developed, appears stated age Level of Distress: comfortable Psychiatric Mental Status: alert, normal affect Orientation: oriented to time, place, and person Insight: good judgement Eyes Lids and Conjunctivae: non-injected, no xanthelasma ENMT Ears: no lesions on external ear Nose: no lesions on external nose Oropharynx: no cyanosis, no pallor Neck Neck: supple, trachea midline Carotid Arteries: bilateral normal upstroke, no bruits Jugular Veins: normal jugular venous pressure Thyroid: not enlarged Lungs Respiratory Effort: unlabored Chest Exam: normal curvature, no thoracic deformity Auscultation: clear, no wheezing, no rales, no rhonchi Cardiovascular Rate And Rhythm: regular Heart Sounds: normal S1, normal s2, no gallop Systolic Murmur: not heard Diastolic Murmur: not heard Extremities: no cyanosis, no edema, no peripheral signs of emboli Peripheral Pulses Radial Pulse: normal Abdomen Inspection and Palpation: soft, non distended, no bruit, non tender Musculoskeletal Inspection: no joint swelling Neurologic Gait: normal gait Skin Inspection and Palpation: warm and dry Nails: no clubbing Labs: @LABRESULTS@ No results found for: CHOLESTEROL TOTAL , HDL , LDL CALC , LDL DIRECT , TRIGLYCERIDES , TSH , T3 TOTAL , T4 TOTAL , THYROID PEROXIDASE AB , BNP EKG: No results found for this or any previous visit (from the past 4464 hour(s)). Echo: Stress test: Coronary angiogram: @CATH@ Diagnostic Imaging: No images are attached to the encounter. Assessment and Plan: Palpitations/tachycardia -will order 30d monitor for better objective data of palpitations -will order TSH to rule out thyroid concerns Kimberly Chowdhury NP Cardiac Electrophysiology [facility] Progress note 12-22-2023 Note Date & Type Note Facility 12-22-2023 Note New patient here to establish care. Ref from Dr. Montero for abnormal heart rate. She had ECG a few weeks ago. Had Holter and echo back in 2021. Says when she does physical activity (and sometimes without activity) she feels her heart vibrate . Denies pain but states she does feel a discomfort . She's been on Advair for 10+ years for asthma. Gets lightheaded with postural changes. Review of Systems Cardiovascular: Positive for chest pain ( discomfort ), dyspnea on exertion and palpitations. Neurological: Positive for light-headedness. All other systems reviewed and are negative. [facility] Evaluation note 11-27-2023 Note Date & Type Note Facility 11-27-2023 Evaluation note Encounter Date Diagnosis Assessment Notes Nov, Irregular heart rate (ICD-10 - I49.9) Had Holter and Echo in 10/2022. Pt agrees to cardiology referral. Will go over directly and get EKG today. Nov, Vasovagal syncope (ICD-10 - R55) as above [facility] Other Evaluation note 07-22-2023 Note Date & Type Note Facility 07-22-2023 Evaluation note Encounter Date Diagnosis Assessment Notes Jul, Allergic reaction to cosmetics (ICD-10 - T78.49XA) Discussed that products w retinol cause increased sun sensitivity. She used one, went [place] and didn't use sunscreen. Offered steroid pack to decrease inflammation, pt declines. Keep area cool, clean and dry. Use SPF daily even when not at waterpark. [facility] Other Evaluation note 02-10-2023 Note Date & Type Note Facility 02-10-2023 Evaluation note Encounter Date Diagnosis Assessment Notes Jan, Diverticulitis (ICD-10 - K57.92) Jan, Colitis (ICD-10 - K52.9) Jan, Abnormal abdominal CT scan (ICD-10 - R93.5) Jan, Constipation (ICD-10 - K59.00) Stop Colace. Start Miralax daily. Instructed pt to titrate dose as needed up to three times a day in order to have one bowel movement daily. Encouraged pt to increase daily fiber intake. Arrange for colonoscopy. [facility] Other Evaluation note 01-03-2023 Note Date & Type Note Facility 01-03-2023 Evaluation note Encounter Date Diagnosis Assessment Notes Dec, Diverticulitis (ICD-10 - K57.92) Age and CT read not common for diverticulitis - she is improved on antibiotics, but would like to have a plan to manage constipation and abd pain in the future. Dec, Chronic constipation (ICD-10 - K59.09) Never saw GI as a child. Consitipation always. Has questions about bowel function and further management. Dec, Pain of both breasts (ICD-10 - N64.4) Not on OCPs presently. Understands she is young for imaging. Will start w US. [facility] Other Evaluation note Note Date & Type Note Facility Evaluation note No Information [facility] [employer] Other History general Narrative - Reported Note Date & Type Note Facility History general Narrative - Reported Type Medical History Asthma Medical History Intermittent palpitations Medical History Chronic constipation Medical History Uvular edema Medical History Diverticulitis Medical History Colitis [facility] Other Reason for visit Narrative Note Date & Type Note Facility Reason for visit Narrative Patient here at the request of Dr. Montero for evaluation & treatment of colitis/diverticulitis. [facility] Other Reason for Referral Reason Either [facility] o r [facility] -had holter and echo in 2021. Continues to feel presyncopal when going from sitting to standing. Has never had a tilt table. Diagnosis 1 Irregular heart rate (I49.9) Referral Organization [facility] [employer] Referring Provider First Name Manisha Referring Provider Last Name Winston Referring Provider Specialty Family Medi cine Referred Organization Unknown Facility Referred Provider Specialty Cardiology Referral Priority Routine Reason 02/10/23 CT from Con [facility], todays note. Never saw GI in the past. Diagnosis 1 Diverticulitis (K57. 92) Referral Organization [facility] [employer] Referring Provider First Name Manisha Referring Provider Last Name Winston Referring Provider Specialty Family Medi cine Referred Organization [facility] Gastroenterolo gy Referred Provider Yony Shea Referred Address [address],[address] Referred Provider Specialty Gastroentero logy Referral Priority Routine Referral Appointment Date 2023-02-10 General Notes Jennifer Zaman 11:38:21 AM >received today, sent P2P Summary Purpose Family History No Family History Records FoundNo Family History Records FoundNo Family History Records Found Advance Directives No Advanced Directives Records FoundNo Advanced Directives Records FoundNo Advanced Directives Records Found Additional Source Comments REASON FOR VISIT (unrecogniz ed section and content) EKG ReportHR, DizzinessRash on FaceLOCK NOTESGI NOTEUS breastTBH INFORMATION SOURCE (unrecogn ized section and content) DATE CREATED AUTHOR 02/21/2023 [facility] DATE CREATED AUTHOR AUTHOR'S ORGANIZ ATION 04/01/2023 [facility] DATE CREATED AUTHOR AUTHOR'S ORGANIZ ATION 01/01/[address] [place] [address] FOR RECORDS PERTAINING TO PATIENTS WHO ARE OR HAVE BEEN ENROLLED IN A CHEMICAL DEPENDENCY/SUBSTANCEABUSE PROGRAM, SOME INFORMATION MAY BE OMITTED. This clinical summary was aggregated from multiple sources. Caution should be exercised in using it in the provision of clinical care. This summary normalizes information from multiple sources, and as a consequence, information in this document may materially change the coding, format and clinical context of patient data. In addition, data may be omitted in some cases. CLINICAL DECISIONS SHOULD BE BASED ON THE PRIMARY CLINICAL RECORDS. [facility]. provides no warranty or guarantee of the accuracy or completeness of information in this document.
--- NOTE | 2024-02-04 23:48 | CT_ITS ---
The [address] [address] Patient Name: JULIO WEBER MRN: [id number] date: 2005 Sex: F Assigned Patient Location: ER Current Patient Location: Accession/Order Number: [id number] Exam Date: 02/04/2024 23:59 Report Date: 02/05/2024 01:12 At the request of: OLEG MARKER Procedure: CT abdomen pelvis w con EXAM: CT abdomen pelvis w con HISTORY: Hx diverticulitis COMPARISON: None. TECHNIQUE: IV contrast-enhanced CT imaging of the abdomen and pelvis. This CT exam was performed using one or more of the following dose reduction techniques: Automated exposure control, adjustment of the mA and/or KV according to patient size, or use of iterative reconstruction technique. Unless otherwise stated, incidental findings do not require dedicated follow-up imaging. FINDINGS: The lung bases are clear. The heart size is normal. The liver, spleen, pancreas, adrenal glands, and kidneys enhance normally. The gallbladder is distended. There is no biliary duct dilatation. The bowel is unobstructed. The appendix is normal. There is a small amount of free fluid in the pelvic cul-de-sac. This is likely functional. The bladder is distended and within normal limits. The bones are intact without acute abnormality. CT/CT abdomen pelvis w con IMPRESSION: No acute abnormality of the abdomen or pelvis. Electronically authenticated by: AREN LYNN Date: 02/05/2024 01:12
--- NOTE | 2024-02-05 00:08 | ED_ITS ---
HPI - Abdominal Pain General Chief Complaint: Abdominal Pain Stated Complaint: ABD PAIN Time Seen by Provider: 02/04/24 23:31 Source: patient and friend Mode of arrival: walk-in History of Present Illness HPI narrative: This 19-year-old female presents for evaluation of 3 days of intermittent abdominal pain. The patient states that this morning she took her vitamins after having a small bowl of cereal and went to work. After getting to work she started having a lot of acid reflux and abdominal cramping. She works throughout the day with intermittent abdominal cramps. She went home and gave herself a Dulcolax suppository. Suppository came out without any stool. She states that she is having intermittent episodes of flat as it is very foul-smelling and has been constipated for the past 3 days. She induced some vomiting earlier today. She has been passing gas. She was diagnosed with diverticulitis a year or so ago. Her father has a history of Crohn's disease. She has never been diagnosed Crohn's disease. She has not had any bloody diarrhea or fever. She is urinating normally. She states that after the diagnosis of diverticulitis she changed her diet and started eating healthier and has not had any symptoms since that time. Related Data Home Medications ?Medication ?Instructions ?Recorded ?Confirmed fluticasone propionate 115 inhalation 02/04/24 mcg-salmeterol 21 mcg/actuation HFA inhaler Allergies Allergy/AdvReac Type Severity Reaction Status Date / Time No Known Drug Allergies Allergy Verified 02/04/24 23:31 Review of Systems ROS Status of ROS 10 or more systems reviewed and unremark able except as noted in history and below Exam Narrative Exam Narrative: Nurses note and vital signs reviewed and patient is not hypoxic. General: The patient appears well and in no apparent distress. Patient is resting comfortably on cart. Skin: Warm, dry, no pallor noted. There is no rash noted. Head: Normocephalic, atraumatic Eye: Normal conjunctiva, no drainage, EOMI. PERRL Ears, Nose, Mouth, and Throat: oral mucosa is moist. Cardiovascular: Regular Rate and Rhythm Respiratory: Patient is in no distress, no accessory muscle use, lungs are clear to auscultation, no wheezing, rales or rhonchi Back: non-tender, no CVA tenderness bilaterally to percussion. GI: Normal bowel sounds, Softly distended, no rebound guarding or rigidity, mild tenderness in the left lower quadrant, no McBurney's or Dumont's point tenderness Musculoskeletal: The patient has no evidence of calf tenderness, no pitting edema, symmetrical pulses noted bilaterally Neurological: A&O x4, normal speech Psychiatric: Cooperative Constitutional Vital Signs, click to edit/add: Last Vital Signs Temp 97.8 F 02/04/24 23:26 Pulse 54 L 02/04/24 23:26 Resp 18 02/04/24 23:26 BP 135/90 02/04/24 23:26 Pulse Ox 98 02/04/24 23:26 O2 Del Method Room Air 02/04/24 23:26 Course Vital Signs Vital signs: Vital Signs Temperature 97.8 F 02/04/24 23: Pulse Rate 54 L 02/04/24 23:26 Respiratory Rate 18 02/04/24 23:26 Blood Pressure 135/90 02/04/24 23:26 Pulse Oximetry 98 02/04/24 23:26 Oxygen Delivery Method Room Air 02/04/24 23:26 Temperature 97.8 F 02/04/24 23:26 Pulse Rate 54 L 02/04/24 23:26 Respiratory Rate 18 02/04/24 23:26 Blood Pressure 135/90 02/04/24 23:26 Pulse Oximetry 98 02/04/24 23:26 Oxygen Delivery Method Room Air 02/04/24 23:26 MDM - Abdominal Pain MDM Narrative Medical decision making narrative: This 19-year-old female with a history of diverticulitis in the past presents for evaluation of one day of abdominal bloating with nausea, constipation for 3 days although she is passing gas. She has not had a fever. She states she was nauseated earlier and having a lot of belching and reflux and made herself throw up. She does have a history of constipation and is not currently taking any medications for constipation but has recently changed her diet and is trying to eat healthier and drink a lot of water. She did try to use a Dulcolax suppository earlier in the day but this did not result in any bowel movements. Her vital signs are stable. She is afebrile. Her abdomen is softly distended and mildly tender. An IV was placed and she was medicated with IV fluids, pepcid, Zofran and Toradol. Routine labs are ordered and are viewed. He has a normal white count and hemoglobin. Her electrolytes are normal. Potassium is minimally low at 3.4 otherwise labs, liver function tests and lipase are normal. Urinalysis negative for infection and she is not . CT scan of abdomen and pelvis was ordered and does not show any acute obstruction or appendicitis or other notable abnormality however I reviewed it myself and there is a large volume of stool throughout her colon. She was given an enema and 50 mL of surgery lube inserted into her rectum to lubricate her rectal vault attempt to help to disimpact her. She had minimal relief after the 1st part of the enema and the 2nd 1/2 of the enema was administered with minimal results but she requests to be discharged and she will continue the treatment for her constipation at home. She will be discharged home with a Rx for colace and certainly recommended that she started daily regimen including Metamucil. She has a strong family history of Crohn's disease and has had diverticulitis in the past. She is in agreement with this plan. Lab Data Labs: Lab Results 02/05/24 02/05/24 Range/Units 00:23 00:31 WBC 12.1 H (4.0-11.0) 10^3/uL RBC 4.44 (4.20-5.40) 10^6/uL Hgb 12.7 (12.0-16.0) g/dL Hct 39.0 (36.0-48.0) % MCV 87.8 (81.0-99.0) fL MCH 28.6 (26.7-34.0) pg MCHC 32.6 (29.9-35.2) g/dL RDW 13.2 (11.0-15.0) % Plt Count 251 (150-450) 10^3/uL MPV 10.2 (9.5-13.5) fL Neut % (Auto) 48.4 (43.0-75.0) % Lymph % (Auto) 30.0 (20.5-60.0) % [place] % (Auto) 6.3 (1.7-12.0) % Eos % (Auto) 14.3 H (0.9-7.0) % Baso % (Auto) 0.8 (0.2-2.0) % Neut # (Auto) 5.9 (1.4-6.5) 10^3/uL Lymph # (Auto) 3.6 (1.2-3.8) 10^3/uL [place] # (Auto) 0.8 (0.3-0.8) 10^3/uL Eos # (Auto) 1.7 H (0.0-0.7) 10^3/uL Baso # (Auto) 0.1 (0.0-0.1) 10^3/uL Abs Immat Gran (auto) 0.03 (0.00-0.03) 10^3/uL Imm/Tot Granulo (auto) 0.2 (0.0-0.5) % Sodium 138 (136-145) mmol/L Potassium 3.4 L (3.5-5.1) mmol/L Chloride 103 (98-107) mmol/L Carbon Dioxide 29.4 (21.0-32.0) mmol/L Anion Gap 9.0 BUN 8.0 (7.0-18.0) mg/dL Creatinine 0.64 (0.55-1.02) mg/dL Est GFR ( Amer) >60 (>=60) Est GFR (Non-Af Amer) >60 (>=60) BUN/Creatinine Ratio 12.5 Glucose 82 (74-106) mg/dL Calcium 9.0 (8.5-10.1) mg/dL Total Bilirubin 0.2 (0.2-1.0) mg/dL AST 22 (15-37) U/L ALT 22 (14-59) U/L Alkaline Phosphatase 59 (46-116) U/L Total Protein 6.8 (6.4-8.2) g/dL Albumin 3.6 (3.4-5.0) g/dL Globulin 3.2 g/dL Albumin/Globulin Ratio 1.1 Lipase 29.0 (16.0-77.0) U/L Urine Color Lt. yellow (YELLOW) Urine Clarity Clear (CLEAR) Urine pH 7.5 (5.0-9.0) Ur Specific [place] 1.010 (1.005-1.025) Urine Protein Negative (NEG/TRACE) mg/dL Urine Glucose (UA) Negative (NEGATIVE) mg/dL Urine Ketones Negative (NEGATIVE) mg/dL Urine Occult Blood Negative (NEGATIVE) Urine Nitrite Negative (NEGATIVE) Urine Bilirubin Negative (NEGATIVE) Urine Urobilinogen 0.2 (0.2-1.0) EU/dL Ur Leukocyte Esterase Negative (NEGATIVE) Urine RBC None seen (0-2) #/HPF Urine WBC 0-2 A (NONE SEEN) #/HPF Ur Squamous Epith Cells Rare (NONE/RARE) #/LPF Urine Crystals None seen (None Seen) #/HPF Urine Bacteria Trace A (NONE SEEN) #/HPF Urine Casts None seen (NONE SEEN) #/LPF Urine Mucus None seen (NONE SEEN) Ur Culture Indicated? Yes Urine HCG, Qual Negative (NEGATIVE) Discharge Plan Discharge Stand Alone Forms: Portal Instructions Chief Complaint: Abdominal Pain Clinical Impression: Abdominal pain, Constipation Patient Disposition: Home, Self-Care Time of Disposition Decision: 03:21 Condition: Good Prescriptions / Home Meds: No Action fluticasone propion-salmeterol 115-21 mcg/actuation HFA aerosol inhaler INHALATION Print Language: Georgian Instructions: Constipation (ED), High Fiber Diet (ED), Acute Abdominal Pain (ED) Referrals: Manisha Small MD [Primary Care Provider] - 1 week
[2024-02-05] MEDS: 0.9 % SODIUM CHLORIDE 1,000 ML 1000 ML IV (00:33)
[2024-02-05] MEDS: FAMOTIDINE/PF 20 MG/2 ML VIAL IV (00:33)
[2024-02-05] MEDS: ONDANSETRON PF 4 MG/2 ML VIAL IV (00:33)
[2024-02-05] MEDS: KETOROLAC TROMETHAMINE 30 MG/ML VIAL IVP (00:33)
[2024-02-05 00:46] LABS: Bilirubin Urine NEGATIVE (NEGATIVE); Blood Urine NEGATIVE (NEGATIVE); Clarity Urine CLEAR (CLEAR); Color Urine LT. YELLOW (YELLOW); Glucose Urine UA NEGATIVE (NEGATIVE); Ketones Urine NEGATIVE (NEGATIVE); Leukocyte Esterase Urine NEGATIVE (NEGATIVE); Nitrite Urine NEGATIVE (NEGATIVE); Protein Urine NEGATIVE (NEG/TRACE); Urobilinogen Urine 0.2 EU/dL (0.2-1.0); pH Urine 7.5 (5.0-9.0)
[2024-02-05 00:48] LABS: HCG Qualitative Urine* NEGATIVE (NEGATIVE)
[2024-02-05 00:53] LABS: WBC Urine 0-2 #/HPF (NONE SEEN)
[2024-02-05 00:54] LABS: Bacteria Urine TRACE #/HPF (NONE SEEN); Cast Seen? NONE SEEN #/LPF (NONE SEEN); Crystals Seen? None Seen #/HPF (None Seen); Mucus Urine NONE SEEN (NONE SEEN); RBC Urine NONE SEEN #/HPF (0-2); Squamous Epithelial Cell Urine RARE #/LPF (NONE/RARE); Urine Culture Indicated YES
[2024-02-05 01:05] LABS: Basophils Absolute Auto 0.1 10^3/uL (0.0-0.1); Basophils Percent Auto 0.8 % (0.2-2.0); Eosinophils Absolute Auto 1.7 10^3/uL (0.0-0.7); Eosinophils Percent Auto 14.3 % (0.9-7.0); Hemoglobin 12.7 g/dL (12.0-16.0); Immature Granulocytes Abs Auto 0.03 10^3/uL (0.00-0.03); Immature Granulocytes Pct Auto 0.2 % (0.0-0.5); Lymphocytes Absolute Auto 3.6 10^3/uL (1.2-3.8); Mean Corpuscular HGB Conc 32.6 g/dL (29.9-35.2); Mean Corpuscular Hemoglobin 28.6 pg (26.7-34.0); Mean Corpuscular Volume 87.8 fL (81.0-99.0); Mean Platelet Volume 10.2 fL (9.5-13.5); Monocytes Absolute Auto 0.8 10^3/uL (0.3-0.8); Monocytes Percent Auto 6.3 % (1.7-12.0); Neutrophils Absolute Auto 5.9 10^3/uL (1.4-6.5); Neutrophils Percent Auto 48.4 % (43.0-75.0); Platelet Count 251 10^3/uL (150-450); Red Blood Count 4.44 10^6/uL (4.20-5.40); Red Cell Distribution Width 13.2 % (11.0-15.0); White Blood Count 12.1 10^3/uL (4.0-11.0)
[2024-02-05 01:19] LABS: Alanine Aminotransferase 22 U/L (14-59); Albumin Globulin Ratio 1.1; Albumin Level 3.6 g/dL (3.4-5.0); Alkaline Phosphatase 59 U/L (46-116); Aspartate Amino Transferase 22 U/L (15-37); BUN Creatinine Ratio 12.5; Bilirubin Total 0.2 mg/dL (0.2-1.0); Carbon Dioxide 29.4 mmol/L (21.0-32.0); Chloride 103 mmol/L (98-107); Estimated GFR (African America >60 (>=60); Estimated GFR (Non-African Ame >60 (>=60); Globulin 3.2 g/dL; Glucose 82 mg/dL (74-106); Potassium 3.4 mmol/L (3.5-5.1); Sodium 138 mmol/L (136-145); Total Protein 6.8 g/dL (6.4-8.2)
== END 2024-02-05 04:17 | disposition home or self-care (01) ==
PROVIDERS: Emergency Provider Emergency Medicine; PCP Family Medicine
DX: K59.00 Constipation, unspecified (principal); R10.9 Unspecified abdominal pain; Z87.19 Personal history of other diseases of the digestive system
CPT/HCPCS: 36415; 74177; 80053; 81001; 83690; 84703; 85025; 87086; 96361; 96374; 96375; 99285; Q9967

== ENCOUNTER 2024-02-09 14:31 | Outpatient (OUT) | payer OTHER, SELFPAY ==
[2024-02-09 16:13] LABS: TSH W/ REFLEX FT4 2.943 uIU/mL (0.358-3.740)
== END 2024-02-09 14:32 | disposition home or self-care (01) ==
LOC: LAB 14:32
PROVIDERS: PCP Family Medicine; Visit Provider Nurse Practitioner
DX: R00.2 Palpitations (principal)
CPT/HCPCS: 36415; 84443

== ENCOUNTER 2024-02-24 08:29 | Outpatient (OUT) | payer OTHER, SELFPAY ==
--- NOTE | 2024-02-24 | PCN_ITS ---
CARDIAC STRESS TEST Requesting Physician: Daren Silva M.D. Procedure Date: 02/24/2024 INTERPRETING PROVIDER: Ivan Obrien M.D. REASON FOR TEST/INDICATION: Ventricular tachycardia. STRESS TEST PROTOCOL: Treadmill stress test, [place] protocol. Resting heart rate: 100 Peak heart rate: 193 Peak maximal heart rate percentage: 96% Resting blood pressure: 118/64 Peak blood pressure: 130/78 Exercise time: 10 minutes 23 seconds Stage reached: 4 Max METS: 13.4 Reason for termination: Target heart rate achieved x3. Heart rate recovery: Normal. Chronotropic response index: 0.93, normal. Functional capacity: Good. Blood pressure response: Normal. Moon treadmill score: 10, low risk. ST changes: No significant ST changes meeting the criteria for ischemia were noted. Patient did have inferolateral upsloping ST depression. Symptoms: No chest pain, no palpitations. Arrhythmias: PVCs noted through the procedure. CONCLUSION: 1. Resting EKG showed sinus rhythm with marked sinus arrhythmia, short TN interval, rightward axis, incomplete right bundle branch block. 2. Patient exercised for 10 minutes, 23 seconds. She reached stage 4, max METS 13.4. 3. Patient had upsloping ST depression in the inferolateral leads. There were no ST changes that meet the definite criteria for ischemia. 4. No chest pain, no palpitations noted. 5. Patient had isolated PVCs throughout the procedure. 6. Moon treadmill score is 10, which portends low risk of angiographically significant coronary artery disease. 7. Clinical correlation recommended. [facility]
--- OUTSIDE RECORDS SUMMARY | 2024-02-24 08:51 | XMS_ITS | CCD ---
Author Organization [facility] Care Team Providers Care Arbitrator Name Role Phone Manisha Montero Unavailable Asaad, Imad Unavailable Asaad, Imad Admitting Unavailable Asaad, Imad Attending Unavailable Manisha Montero Primary Care Unavailable WINSTON, DR MANISHA Craft Primary Care Unavailable SUKHJINDER Ford, GABRIELLE Admitting Unavailable SUKHJINDER Ford, GABRIELLE Attending Unavailable CHAN PETTIT Consulting Unavailable SUKHJINDER Ford, GABRIELLE Consulting Unavailable WINSTON, DR MANISHA Craft Admitting [...] WINSTON, DR MANISHA Craft Primary Care Unavailable ASDIA NEWBERRY Admitting Unavailable SADIA NEWBERRY Attending Unavailable CONI, SADIA Consulting Unavailable JERSEY LOAIZA Consulting Unavailable WINSTON, DR MANISHA Craft Primary Care Unavailable KRIS Ford, DR SORENSEN Admitting Unavailable KRIS ., DR SORENSEN Attending Unavailable KRIS ., DR SORENSEN Consulting Unavailable AREN MCCOLLUM Consulting Unavailable WINSTON, DR MANISHA Craft Primary Care Unavailable KATIE SUÁREZ Admitting Unavailable NICOLAS Ford, KATIE Attending Unavailable NICOLAS ., KATIE Consulting Unavailable KIMBERLY CHOWDHURY Attending Unavailable IVANNA OLSON Attending Unavailable Medications Current Medications Medication Drug Class(es) Dates Sig (Normalized) Sig (Original) 120 actuat fluticasone propionate 0.115 mg/actuat / salmeterol 0.021 mg/actuat metered dose inhaler (9 sources) Corticosteroid, beta2-Adrenergic Agonist take 2 puff(s) by inhalation once daily Advair HFA 115-21 MCG/ACT 2 puffs Inhalation daily for 30 days Active Advair HFA 230-2 1 MCG/ACT (Prior Auth#:[id number]) Inhalation for 30 Active methylPREDNISolone 4 mg oral tablet (1 source) Corticosteroid Start: 06-09-2023 methylPREDNISo lone 4 MG as directed Orally for 6 days May, Active polyethylene glycol 3350 267530 mg / potassium chloride 2970 mg / sodium bicarbonate 6740 mg / sodium chloride 5860 mg / sodium sulfate 82036 mg powder for oral solution (2 sources) [...] Translations: [Unspecified asthma, uncomplicated] Chronic Cardiac dysrhythmias (5 sources) Irregular heart beat; Translations: [Cardiac arrhythmia, unspecified] Onset: 02-17-2024 Chronic Cardiac dysrhythmias (17 sources) Intermittent palpitations; [...] COVID-19; Translations: [UNVACCINATED FOR COVID-19] Onset: 05-22-2022 Unclassified (1 source) Other ventricular tachycardia; Translations: [Other ventricular tachycardia] Onset: 02-17-2024 Past or Other Problems Problem Classification Problem Date Documented Date Episodic/Chronic Fever of unknown origin (4 sources) Fever, unspecified; Translations: [FEVER UNSPECIFIED] Onset: 05-21-2022 Episodic Fluid and electrolyte disorders (1 source) Hypokalemia; Translations: [HYPOKALEMIA] Onset: 05-22-2022 Episodic Noninfectious gastroenteritis (2 sources) Noninfective gastroenteritis and colitis, unspecified; Translations: [NONINFECTIVE GE AND COLITIS UNS] Onset: 12-24-2022 Episodic Other aftercare (1 source) Other termite helper (current) drug therapy; Translations: [OTH LONG-TERM CURRENT DRUG THERAPY] Onset: 12-24-2022 Episodic Other screening for suspected conditions (not mental disorders or infectious disease) (2 sources) Abnormal findings on diagnostic imaging of other abdominal regions, including retroperitoneum; Translations: [ABN FIND DX IMAG OTH AB REGION W/RP] Onset: 12-24-2022 Episodic Unclassified (1 source) Other ventricular tachycardia; Translations: [Other ventricular tachycardia] Onset: 02-17-2024 Viral infection (1 source) Viral infection, unspecified; Translations: [VIRAL INFECTION UNSPECIFIED] Onset: 05-22-2022 Episodic Results Test Name Value Interpretation Reference Range Facility Office Visiton 02-17-2024 Follow-up visit [id number] Julio Black 2005 F Date Provider Department Center 02/17/2024 IVANNA RAM [facility]DR[facility] Family History Problem Relation Age of Onset Crohn's disease Father Family Status - Relation Status Age at Father Level of Service:70625 [place] OFFICE/OUTPATIENT NEW MODERATE MDM 45 MINUTES Reason for Visit and Comments: Follow-up [528410] - 2 MONTH FOLLOW UP Normal [facility] Office Visiton 12-22-2023 Follow-up visit [id number] Julio Black 2005 F Date Provider Department Center 12/22/2023 1596-KIMBERLY CHOWDHURY CARD [facility] Family History Problem Relation Age of Onset Crohn's disease Father Family Status - Relation Status Age at Father Level of Service:92273 [place] OFFICE/OUTPATIENT NEW LOW MDM 30 MINUTES Normal [facility] CT ABD/PELVIS WO CONon 02-16 CT [...] No acute renal pathology. Electronically authenticated by: CAHNTerence PETTIT Date: 2023-02-15 23:32 Normal [facility] HCG,Urineon 02-13-2023 Beta HCG ( test) Ql (U) Negative Normal [facility] Comment on above: Result Comment: PERF ORMED BY: [place] [address] PATHOLOGIST PUBLIC WEIGHER CLARKE LARKIN M.D. Performed By: #### U HCG #### [address] US BREAST BASHIR LIMITEDon 01-16 US BREAST BASHIR LIMITED Patient: JULIO BLACK Exam Date: 02/03/2023 : 2005 Gender:F Ordering : DR MANISHA MONTERO M.D. Admission #: [id number] Family : Order #: [id number] CLICK HERE TO VIEW EXAM RADIOLOGY REPORT [...] Henriquez M.D. on 02/03/2023 at 16:33 Normal [facility] [address] ABD/PELV W CONon 12-23-[address] ABD/PELV W CON EXAMINATION: CT ABD/PELV [...] AREN MCCOLLUM Date: 2022-12-22 22:43 Normal [facility] AMYLASEon 12-22-2022 Amylase [Catalytic activity/Vol] 49 U/L Normal 25-115 [facility] Comment on above: Performed By: #### L IPA, JOHN, CMP ####[facility] [address] [place] [address]DrLiliana Bird CBC AUTO DIFFon 12-22-2022 BASO # 0.1 103/ul Normal 0.0-0.1 [facility] Comment on above: Performed By: #### C BC ####[facility] [address] [place] [id number]. Ronald Bird Basophils/100 WBC (Bld) 0.7 % Normal 0.2-2.0 [facility] Comment on above: Performed By: #### C BC ####[facility] [address] [place] [address]DrLiliana Bird EO # 0.9 103/ul Critically high 0.0-0.7 [facility] Comment on above: Performed By: #### C BC ####[facility] [address] [place] [address]DrLiliana Bird Eosinophils/100 WBC (Bld) 8.4 % Critically high 0.9-7.0 [facility] Comment on above: Performed By: #### C BC ####[facility] [address] [place], [place] [address]Dr. Ronald Pelon Erythrocyte distribution width (RBC) [Ratio] 13.8 % Normal 11.0-15.0 [facility] Comment on above: Performed By: #### C BC ####[facility] [address] [place], [place] [address]Dr. Amandazunilda Bird Hematocrit (Bld) [Volume fraction] 40.9 % Normal 36.0-48.0 [facility] Comment on above: Performed By: #### C BC ####[facility] [address] [place], [place] [address]Dr. Ronald Bird Hemoglobin (Bld) [Mass/Vol] 12.8 g/dL Normal 12.0-16.0 [facility] Comment on above: Performed By: #### C BC ####[facility] [address] [place], [place] [address]Dr. Ronald Bird IG # 0.02 10e3/ul Normal 0.00-0.03 [facility] Comment on above: Performed By: #### C BC ####[facility] [address] [place], [place] [address]Dr. Ronald Bird IG % 0.2 % Normal 0.0-0.5 [facility] Comment on above: Performed By: #### C BC ####[facility] Q[address]zin[address] [place], [place] [address]DrLiliana Bird LYMPH # 3.3 103/ul Normal 1.2-3.8 [facility] Comment on above: Performed By: #### C BC ####[facility] [address] [place], [place] [address]DrLiliana Bird Lymphocytes/100 WBC (Bld) 31.6 % Normal 20.5-60.0 [facility] Comment on above: Performed By: #### C BC ####[facility] [address] [place], [place] [address]DrLiliana Bird MANUAL DIFF REQ NO Normal [facility] Comment on above: Performed By: #### C BC ####[facility] [address] [place] [address]DrLiliana Bird MCH (RBC) [Entitic mass] 27.8 pg Normal 26.7-34.0 [facility] Comment on above: Performed By: #### C BC ####[facility] [address] [place], [place] [address]DrLiliana Bird MCHC (RBC) [Mass/Vol] 31.3 g/dL Normal 29.9-35.2 [facility] Comment on above: Performed By: #### C BC ####[facility] [address] [place], [place] [address]DrLiliana Bird MCV (RBC) [Entitic vol] 88.9 fL Normal 81.0-99.0 [facility] Comment on above: Performed By: #### C BC ####[facility] [address] [place], [place] [address]DrLiliana Bird MONO # 1.0 103/ul Critically high 0.3-0.8 [facility] Comment on above: Performed By: #### C BC ####[facility] [address] [place], [place] [address]DrLiliana Bird Monocytes/100 WBC (Bld) 9.5 % Normal 1.7-12.0 [facility] Comment on above: Performed By: #### C BC ####[facility] [address] [place], [place] [address]DrLiliana Bird NEUT # 5.1 103/ul Normal 1.4-6.5 [facility] Comment on above: Performed By: #### C BC ####[facility] [address] [place], [place] [address]DrLiliana Bird Neutrophils/100 WBC (Bld) 49.6 % Normal 43.0-75.0 [facility] Comment on above: Performed By: #### C BC ####[facility] [address] [place], [place] [address]DrLiliana Bird Platelet mean volume (Bld) [Entitic vol] 10.4 fL Normal 9.5-13.5 [facility] Comment on above: Performed By: #### C BC ####[facility] [address] [place] [address]DrLiliana Bird PLT 269 103/ul Normal 150-450 [facility] Comment on above: Performed By: #### C BC ####[facility] [address] [place] [address]DrLiliana Bird RBC 4.60 106/ul Normal 4.20-5.40 [facility] Comment on above: Performed By: #### C BC ####[facility] [address]ux[address] [place], [place] [address]DrLiliana Bird WBC 10.3 103/ul Normal 4.0-11.0 [facility] Comment on above: Performed By: #### C BC ####[facility] [address] [place], [place] [address]Dr. Ronald Bird ER URINE PROFILEon 3 Bilirubin Ql (U) Negative Normal NEGATIVE [facility] Comment on above: Performed By: #### E RUR #### [facility] [address] [place] [address] Dr. Ronald Bird Clarity (U) CLEAR Normal CLEAR [facility] Comment on above: Performed By: #### E RUR #### [facility] [address] [place] [address] Dr. Ronald Bird Color (U) YELLOW Normal YELLOW [facility] Comment on above: Performed By: #### E RUR #### [facility] [address] [place] [address] Dr. Ronald Bird ERUAHD A micrscopic examination will be performed if indicated. Normal [facility] Comment on above: Performed By: #### E RUR #### [facility] [address] [place] [address] Dr. Ronald Bird Glucose Ql (U) Negative Normal NEGATIVE [facility] Comment on above: Performed By: #### E RUR #### [facility] [address] [place] [address] Dr. Ronald Bird Hemoglobin Ql (U) Negative Normal NEGATIVE [facility] Comment on above: Performed By: #### E RUR #### [facility] [address] [place] [address] Dr. Ronald Bird Ketones Ql (U) Negative Normal NEGATIVE [facility] Comment on above: Performed By: #### E RUR #### [facility] [address] [place] [address] Dr. Ronald Bird LEUKOCYTES Negative Normal NEGATIVE [facility] Comment on above: Performed By: #### E RUR #### [facility] [address] [place] [address] Dr. Ronald Bird Nitrite Ql (U) Negative Normal NEGATIVE [facility] Comment on above: Performed By: #### E RUR #### [facility] [address] [place] [address] Dr. Ronald Bird pH (U) 7.0 [pH] Normal 5-9 [facility] Comment on above: Performed By: #### E RUR #### [facility] [address] [place] [address] Dr. Ronald Bird SPEC GRAVITY 1.020 Normal 1.005-<=1.025 [facility] Comment on above: Performed By: #### E RUR #### [facility] [address] [place] [address] Dr. Ronald Bird UA PROTEIN Negative Normal NEGATIVE/ TRACE [facility] Comment on above: Performed By: #### E RUR #### [facility] [address] [place] [address] Dr. Ronald Bird UR MICRO IND NOT INDICATED Normal [facility] Comment on above: Performed By: #### E RUR #### [facility] [address] [place] [address] Dr. Ronald Bird Urobilinogen Qn (U) 1.0 {Reese'U}/dL Normal 0.2 - 1.0 [facility] Comment on above: Performed By: #### E RUR #### [facility] [address] [place] [address] [address] Ronald Bird LIPASEon 12-22-2022 Lipase [Catalytic activity/Vol] 76.0 U/L Normal 73.0-393.0 [facility] Comment on above: Performed By: #### L IPA JOHN, CMP ####[facility] [address] [place] [address]Dr. Ronald Bird PROF 14(COMP METB)on 023 Albumin [Mass/Vol] 4.3 g/dL Normal 3.4-5.0 [facility] Comment on above: Performed By: #### L IPA JOHN, CMP #### [facility] [address] [address] [address] Ronald Bird Albumin/Globulin [Mass ratio] 1.2 {ratio} Normal [facility] Comment on above: Performed By: #### L IPA JOHN, CMP #### [facility] [address] [place] [address] Dr. Ronald Bird ALP [Catalytic activity/Vol] 80 U/L Normal 46-116 [facility] Comment on above: Performed By: #### L IPA JOHN, CMP #### [facility] [address] [place] [address] Dr. Ronald Bird ALT [Catalytic activity/Vol] 15 U/L Normal 14-59 [facility] Comment on above: Performed By: #### L IPA JOHN, CMP #### [facility] [address] [address] [address] Ronald Bird Anion gap [Moles/Vol] 15.1 mmol/L Normal [facility] Comment on above: Performed By: #### L IPA JOHN, CMP #### [facility] [address] [address] [address] Ronald Bird AST [Catalytic activity/Vol] 18 U/L Normal 15-37 [facility] Comment on above: Performed By: #### L IPA, JOHN, CMP #### [facility] [address] [address] [address] Ronald Bidr Bilirubin [Mass/Vol] 0.2 mg/dL Normal 0.2-1.0 [facility] Comment on above: Performed By: #### L JOHN WISDOM, CMP #### [facility] [address] [address] [address] Ronald Bird Calcium [Mass/Vol] 9.5 mg/dL Normal 8.5-10.1 [facility] Comment on above: Performed By: #### L IPA JOHN, CMP #### [facility] [address] [place] [address] Dr. Ronald Bird Chloride [Moles/Vol] 99 mmol/L Normal 98-107 [facility] Comment on above: Performed By: #### L ARTIS JOHN, CMP #### [facility] [address] [place] [address] Dr. Ronald Bird CO2 [Moles/Vol] 28.4 mmol/L Normal 21.0-32.0 [facility] Comment on above: Performed By: #### L JOHN WISDOM, CMP #### [facility] [address] [place] [address] Dr. Ronald Bird Creatinine [Mass/Vol] 0.63 mg/dL Normal 0.55-1.02 [facility] Comment on above: Performed By: #### L JOHN WISDOM, CMP #### [facility] [address] [place] [address] Dr. Ronald Bird EGFR-AF SALVADOREAN >60 Normal >=60 [facility] Comment on above: Performed By: #### L JOHN WISDOM, CMP #### [facility] [address] [place] [address] Dr. Ronald Bird EGFR-NON AF SALVADOREAN >60 Normal >=60 [facility] Comment on above: Performed By: #### L JOHN WISDOM, CMP #### [facility] [address] [place] [address] Dr. Ronald Bird Globulin (S) [Mass/Vol] 3.6 g/dL Normal [facility] Comment on above: Performed By: #### L ARTIS JOHN, CMP #### [facility] [address] [place] [address] Dr. Ronald Bird Glucose [Mass/Vol] 100 mg/dL Normal 74-106 [facility] Comment on above: Performed By: #### L JOHN WISDOM, CMP #### [facility] [address] [place] [address] Dr. Ronald Bird Potassium [Moles/Vol] 3.5 mmol/L Normal 3.5-5.1 [facility] Comment on above: Performed By: #### L JOHN WISDOM, CMP #### [facility] [address] [place] [address] Dr. Ronald Bird Protein [Mass/Vol] 7.9 g/dL Normal 6.4-8.2 [facility] Comment on above: Performed By: #### L JOHN WISDOM, CMP #### [facility] [address] [place] [address] Dr. Ronald Bird Sodium [Moles/Vol] 139 mmol/L Normal 136-145 [facility] Comment on above: Performed By: #### L JOHN WISDOM, CMP #### [facility] [address] [place] [address] Dr. Ronald Bird Urea nitrogen [Mass/Vol] 7.0 mg/dL Normal 6.4-19.3 [facility] Comment on above: Performed By: #### L JOHN WISDOM, CMP #### [facility] [address] [place] [address] Dr. Ronald Bird Urea nitrogen/Creatinin e [Mass ratio] 11.1 mg/mg Normal [facility] Comment on above: Performed By: #### L JOHN WISDOM, CMP #### [facility] [address] [place] [address] Dr. Ronald Bird ECHOCARDIO M/2D COMPLETEon 1 ECHOCARDIO M/2D COMPLETE Patient: GUS JULIO Reynoso Exam Date: 11/15/2022 : 2005 Gender:F Ordering : DR MANISHA MONTERO M.D. Admission #: [id number] Family : Order #: [id number] CLICK HERE TO VIEW EXAM ECHOCARDIOGRAM REPORT [...] Helms M.D. on 11/19/2022 at 10:38 Normal [facility] AMYLASEon 05-21-2022 Amylase [Catalytic activity/Vol] 45 U/L Normal 25-115 [facility] Comment on above: Performed By: #### C JOHN RIOS LIPA #### [facility] [address] [place], [place] [address] Dr. Ronald Bird CBC AUTO DIFFon 05-21-2022 BASO # 0.0 103/ul Normal 0.0-0.1 [facility] Comment on above: Performed By: #### C BC ####[facility] [address] [place] [address]DrLiliana Bird Basophils/100 WBC (Bld) 0.2 % Normal 0.2-2.0 [facility] Comment on above: Performed By: #### C BC ####[facility] [address] [place] [address]DrLiliana Bird EO # 0.2 103/ul Normal 0.0-0.7 [facility] Comment on above: Performed By: #### C BC ####[facility] [address] [place] [address]DrLiliana Bird Eosinophils/100 WBC (Bld) 1.2 % Normal 0.9-7.0 [facility] Comment on above: Performed By: #### C BC ####[facility] [address] [place] [address]DrLiliana Bird Erythrocyte distribution width (RBC) [Ratio] 12.8 % Normal 11.0-15.0 [facility] Comment on above: Performed By: #### C BC ####[facility] [address] [place] [address]DrLilinaa Ronald Bird Hematocrit (Bld) [Volume fraction] 39.0 % Normal 36.0-48.0 [facility] Comment on above: Performed By: #### C BC ####[facility] [address] [place] [address]DrLiliana Ronald Bird Hemoglobin (Bld) [Mass/Vol] 13.1 g/dL Normal 12.0-16.0 [facility] Comment on above: Performed By: #### C BC ####[facility] [address] [place] [address]DrLiliana Ronald Bird IG # 0.07 10e3/ul Critically high 0.00-0.03 [facility] Comment on above: Performed By: #### C BC ####[facility] [address] [place] [address]DrLiliana Ronald Pelon IG % 0.4 % Normal 0.0-0.5 [facility] Comment on above: Performed By: #### C BC ####[facility] [address] [place] [address]DrLiliana Ronald Bird LYMPH # 0.6 103/ul Critically low 1.2-3.8 [facility] Comment on above: Performed By: #### C BC ####[facility] [address] [place] [address]DrLiliana Ronald Pelon Lymphocytes/100 WBC (Bld) 3.6 % Critically low 20.5-60.0 [facility] Comment on above: Performed By: #### C BC ####[facility] [address] [place] [address]DrLiliana Ronald Pelon MANUAL DIFF REQ NO Normal [facility] Comment on above: Performed By: #### C BC ####[facility] [address] [place] [address]DrLiliana Ronald Pelon MCH (RBC) [Entitic mass] 29.1 pg Normal 26.7-34.0 [facility] Comment on above: Performed By: #### C BC ####[facility] [address] [place] [address]Dr. Ronald Bird MCHC (RBC) [Mass/Vol] 33.6 g/dL Normal 29.9-35.2 [facility] Comment on above: Performed By: #### C BC ####[facility] [address] [place] [address]DrLiliana Ronald Pelon MCV (RBC) [Entitic vol] 86.7 fL Normal 81.0-99.0 [facility] Comment on above: Performed By: #### C BC ####[facility] [address] [place] [address]DrLiliana Bird MONO # 0.9 103/ul Critically high 0.3-0.8 [facility] Comment on above: Performed By: #### C BC ####[facility] [address] [place] [address]Dr. Ronald Bird Monocytes/100 WBC (Bld) 5.3 % Normal 1.7-12.0 [facility] Comment on above: Performed By: #### C BC ####[facility] [address] [place], [place] [id number] Patelzunilda Bird NEUT # 15.7 103/ul Critically high 1.4-6.5 [facility] Comment on above: Performed By: #### C BC ####[facility] [address] [place] [address]DrLiliana Bird Neutrophils/100 WBC (Bld) 89.3 % Critically high 43.0-75.0 [facility] Comment on above: Performed By: #### C BC ####[facility] [address] [place], [place] [id number] Bird Platelet mean volume (Bld) [Entitic vol] 10.4 fL Normal 9.5-13.5 [facility] Comment on above: Performed By: #### C BC ####[facility] [address] [place] [id number] Bird PLT 208 103/ul Normal 150-450 [facility] Comment on above: Performed By: #### C BC ####[facility] [address] [place], [place] [address]IiDr. Ronald Bird RBC 4.50 106/ul Normal 4.20-5.40 [facility] Comment on above: Performed By: #### C BC ####[facility] [address] [place], [place] [address]SvDr. Ronald Bird WBC 17.5 103/ul Critically high 4.0-11.0 [facility] Comment on above: Performed By: #### C BC ####[facility] [address] [place], [place] [address]LcDr. Ronlad Bird Covid-19 PCR (CVDTB)on SARS-CoV-2 (COVID-19) RNA TERRY+probe Ql (Unsp spec) Not detected Normal NOT DETECTED [facility] Comment on above: Result Comment: When [...] for this test is supported by the [place] of Health and Human Service's declaration that [...] longer be used). Performed By: #### C VDTBH #### [facility] [address] [place], [place] [address] Dr. Ronald Bird ER URINE PROFILEon 2 Bilirubin Ql (U) Negative Normal NEGATIVE [facility] Comment on above: Performed By: #### E RUR ####[facility] [address] [place], [place] [address]ZpDr. Ronald Bird Clarity (U) CLEAR Normal CLEAR [facility] Comment on above: Performed By: #### E RUR ####[facility] [address] [place], [place] [address]Dr. Ronald Bird Color (U) LT. YELLOW Normal YELLOW [facility] [facility] Comment on above: Performed By: #### E RUR ####[facility] [id number] [place], [place] [address]Dr. Ronald Bird ERUAHD A micrscopic examination will be performed if indicated. Normal [facility] Comment on above: Performed By: #### E RUR ####[facility] [address]bj[address] [place], [place] [address]Dr. Ronald Bird Glucose Ql (U) Negative Normal NEGATIVE [facility] Comment on above: Performed By: #### E RUR ####[facility] [address] [place], [place] [address]Dr. Ronald Bird Hemoglobin Ql (U) Negative Normal NEGATIVE [facility] Comment on above: Performed By: #### E RUR ####[facility] Itqnbfvalj[address] [place], [place] [address]Dr. Ronald Bird Ketones Ql (U) Negative Normal NEGATIVE [facility] Comment on above: Performed By: #### E RUR ####[facility] J[address] [place], [place] [address]Dr. Ronald Bird LEUKOCYTES Negative Normal NEGATIVE [facility] Comment on above: Performed By: #### E RUR ####[facility] Irntcm[address] [place], [place] [address]Dr. Ronald Bird Nitrite Ql (U) Negative Normal NEGATIVE [facility] Comment on above: Performed By: #### E RUR ####[facility] [address] [place], [place] [address]Dr. Ronald Bird pH (U) 7.0 [pH] Normal 5-9 [facility] Comment on above: Performed By: #### E RUR ####[facility] C[address] [place], [place] [address]Dr. Ronald Bird SPEC GRAVITY <=1.005 Abnormal 1.005-<=1.025 [facility] Comment on above: Performed By: #### E RUR ####[facility] [address] [place], [place] [address]Dr. Amandazunilda Bird UA PROTEIN Negative Normal NEGATIVE/ TRACE [facility] Comment on above: Performed By: #### E RUR ####[facility] [address] [place], [place] [address]Dr. Ronald Bird UR MICRO IND NOT INDICATED Normal [facility] Comment on above: Performed By: #### E RUR ####[facility] [address]ixujw[address] [place], [place] [address]Dr. Ronald Bird Urobilinogen Qn (U) 0.2 {Reese'U}/dL Normal 0.2 - 1.0 [facility] Comment on above: Performed By: #### E RUR ####[facility] [address] [place], [place] [address]Dr. Ronald Bird GROUP A STREP CULTUREon S. pyogenes Ag Ql (Unsp spec) Culture Observations: NEGATIVE FOR GROUP A STREPTOCOCCUS. Normal [facility] Comment on above: Performed By: #### S SCRN GRASTCX ####[facility] [address] [place], [place] [address]Dr. Ronald Bird INFLUENZA A AND B AGon 05-21 INFLUENZA A AG Negative Normal NEGATIVE SEE COMMENT [facility] Comment on above: Performed By: #### I NFLUAB ####[facility] [address] [place], [place] [address]Dr. Ronald Bird INFLUENZA B AG Negative Normal NEGATIVE SEE COMMENT [facility] Comment on above: Performed By: #### I NFLUAB ####[facility] [address] [place], [place] [address]Dr. Ronald Bird INFLUPOSH SEE BELOW Normal [facility] Comment on above: Result Comment: NOTE : Live attenuated influenzae vaccine viruses can cause a positive result for a rapid influenza diagnostic test if administered up to 7 days prior to rapid testing. Performed By: #### I NFLUAB ####[facility] [address] [place] [address]Dr. Ronald Bird INFLUPOSHB SEE BELOW Normal [facility] Comment on above: Result Comment: NOTE : Live attenuated influenzae vaccine viruses can cause a positive result for a rapid influenza diagnostic test if administered up to 7 days prior to rapid testing. Performed By: #### I NFLUAB ####[facility] [address] [place] [address]DrLiliana Bird INTERNAL CONTROLS Within Normal Limits Normal Wi thin Normal Limits [facility] Comment on above: Performed By: #### I NFLUAB ####[facility] [address] [place] [address]Dr. Ronald Bird LIPASEon 05-21-2022 Lipase [Catalytic activity/Vol] 62.0 U/L Critically low 73.0-393.0 [facility] Comment on above: Performed By: #### C JOHN RIOS LIPA #### [facility] [address] [place] [address] Dr. Ronald Bird PROF 14(COMP METB)on 022 Albumin [Mass/Vol] 4.1 g/dL Normal 3.4-5.0 [facility] Comment on above: Performed By: #### C JOHN RIOS LIPA #### [facility] [address] [place] [address] Dr. Ronald Bird Albumin/Globulin [Mass ratio] 1.2 {ratio} Normal [facility] Comment on above: Performed By: #### C JOHN RIOS, LIPA #### [facility] [address] [place] [address] Dr. Ronald Bird ALP [Catalytic activity/Vol] 74 U/L Normal 46-116 [facility] Comment on above: Performed By: #### C JOHN RIOS, LIPA #### [facility] [address] [place] [address] Dr. Ronald Bird ALT [Catalytic activity/Vol] 60 U/L Critically high 14-59 [facility] Comment on above: Performed By: #### C JOHN RIOS, LIPA #### [facility] [address] [place] [address] Dr. Ronald Bird Anion gap [Moles/Vol] 13.4 mmol/L Normal [facility] Comment on above: Performed By: #### C JOHN RIOS LIPA #### [facility] [address] [address] [address] Ronald Bird AST [Catalytic activity/Vol] 46 U/L Critically high 15-37 [facility] Comment on above: Performed By: #### C JOHN RIOS LIPA #### [facility] [address] [address] [address] Ronald Bird Bilirubin [Mass/Vol] 0.6 mg/dL Normal 0.2-1.0 [facility] Comment on above: Performed By: #### C JOHN RIOS LIPA #### [facility] [address] [address] [address] Ronald Bird Calcium [Mass/Vol] 9.3 mg/dL Normal 8.5-10.1 [facility] Comment on above: Performed By: #### C JOHN RIOS, LIPA #### [facility] [address] [address] [address] Ronald Bird Chloride [Moles/Vol] 100 mmol/L Normal 98-107 [facility] Comment on above: Performed By: #### C JOHN RIOS, LIPA #### [facility] [address] [address] [address] Ronald Bird CO2 [Moles/Vol] 24.9 mmol/L Normal 21.0-32.0 [facility] Comment on above: Performed By: #### C JOHN RIOS, LIPA #### [facility] [address] [address] [address] Ronald Bird Creatinine [Mass/Vol] 0.71 mg/dL Normal 0.55-1.02 [facility] Comment on above: Performed By: #### C JOHN RIOS, LIPA #### [facility] [address] [address] [address] Ronald Bird EGFR-AF SALVADOREAN >60 Normal >=60 [facility] Comment on above: Performed By: #### C JOHN RIOS LIPA #### [facility] [address] [address] [address] Ronald Bird EGFR-NON AF SALVADOREAN >60 Normal >=60 [facility] Comment on above: Performed By: #### C MP, JOHN, LIPA #### [facility] [address] [address] [address] Ronald Bird Globulin (S) [Mass/Vol] 3.5 g/dL Normal [facility] Comment on above: Performed By: #### C MP, JOHN, LIPA #### [facility] [address] [address] [address] Ronald Bird Glucose [Mass/Vol] 109 mg/dL Critically high 74-106 [facility] Comment on above: Performed By: #### C MP, JOHN, LIPA #### [facility] [address] [place] [address] Dr. Ronald Bird Potassium [Moles/Vol] 3.3 mmol/L Critically low 3.5-5.1 [facility] Comment on above: Performed By: #### C MP, JOHN, LIPA #### [facility] [address] [address] [address] Ronald Bird Protein [Mass/Vol] 7.6 g/dL Normal 6.4-8.2 [facility] Comment on above: Performed By: #### C MP, JOHN, LIPA #### [facility] [address] [address] [address] Ronald Bird Sodium [Moles/Vol] 135 mmol/L Critically low 136-145 [facility] Comment on above: Performed By: #### C MP, JOHN, LIPA #### [facility] [address] [address] [address] Ronald Bird Urea nitrogen [Mass/Vol] 7.0 mg/dL Normal 6.4-19.3 [facility] Comment on above: Performed By: #### C MP, JOHN, LIPA #### [facility] [address] [address] [address] Ronald Bird Urea nitrogen/Creatinin e [Mass ratio] 9.9 mg/mg Normal [facility] Comment on above: Performed By: #### C JOHN RIOS LIPA #### [facility] [address] [place], [place] [address] Dr. Ronald Bird STREPT SCREENon 05-21-2022 STREP SCREEN A Negative Normal NEGATIVE [facility] Comment on above: Performed By: #### S SCRN, GRASTCX ####[facility] [address] [place], [place] [address]WhDr. Ronald Bird XR CHEST 2 Von 05-21-2022 [...] by: Gerardo LOAIZA Date: 2022-05-21 02:49 Normal [facility] Vital Signs Date Time Vital Sign Value Performing Clinician Facility 11-27-2023 15:15-0500 Body height 165.1 cm Manisha Montero Other [facility] Other 11-27-2023 15:15-0500 Body mass index (BMI) [Ratio] 23.29 kg/m2 Manisha Montero Other [facility] Other 11-27-2023 15:15-0500 Body weight 63.5 kg Manisha Montero Other [facility] Other 11-27-2023 15:15-0500 Diastolic blood pressure 81 mm[Hg] Manisha Montero Other [facility] Other 11-27-2023 15:15-0500 Systolic blood pressure 131 mm[Hg] Manisha Montero Other [facility] Other 07-22-2023 15:45-0400 Body height 165.1 cm Manisha Montero Other [facility] Other 07-22-2023 15:45-0400 Body mass index (BMI) [Ratio] 23.39 kg/m2 Manisha Montero Other [facility] Other 07-22-2023 15:45-0400 Body weight 63.78 kg Manisha Montero Other [facility] Other 07-22-2023 15:45-0400 Diastolic blood pressure 71 mm[Hg] Manisha Montero Other [facility] Other 07-22-2023 15:45-0400 Systolic blood pressure 109 mm[Hg] Manisha Montero Other [facility] Other 02-10-2023 16:00-0400 Body height 165.1 cm Imad Asaad Other [facility] Other 02-10-2023 16:00-0400 Body mass index (BMI) [Ratio] 22.46 kg/m2 Imad Asaad Other [facility] Other 02-10-2023 16:00-0400 Body weight 61.24 kg Imad Asaad Other [facility] Other 02-10-2023 16:00-0400 Diastolic blood pressure 78 mm[Hg] Imad Asaad Other [facility] Other 02-10-2023 16:00-0400 Systolic blood pressure 132 mm[Hg] Imad Asaad Other [facility] Other 01-03-2023 11:00-0500 Body height 165.1 cm Manisha Montero Other [facility] Other 01-03-2023 11:00-0500 Body mass index (BMI) [Ratio] 22.46 kg/m2 Manisha Montero Other [facility] Other 01-03-2023 11:00-0500 Body weight 61.24 kg Manisha Montero Other [facility] Other 01-03-2023 11:00-0500 Diastolic blood pressure 66 mm[Hg] Manisha Montero Other [facility] Other 01-03-2023 11:00-0500 SaO2% (BldA) [Mass fraction] 99 % Manisha Montero Other [facility] Other 01-03-2023 11:00-0500 Systolic blood pressure 118 mm[Hg] Manisha Montero Other [facility] Other Encounters Encounter Date Encounter Type Care Provider Facility Start: 02-17-2024 End: 02-17-2024 ambulatory [facility] Start: 12-22-2023 End: 12-22-2023 ambulatory [facility] Start: 11-28-2023 End: 11-28-2023 ambulatory Manisha Montero Other [facility] Other Start: 11-28-2023 Telephone encounter Manisha Montero [facility] Start: 11-27-2023 End: 11-27-2023 ambulatory Manisha Montero Other [facility] Other Start: 11-27-2023 Office outpatient visit 15 minutes Manisha Montero [facility] Start: 07-22-2023 End: 07-22-2023 ambulatory Manisha Montero Other [facility] Other Start: 07-22-2023 Office outpatient visit 15 minutes Manisha Montero [facility] Start: 06-12-2023 End: 06-12-2023 ambulatory Manisha Montero Other [facility] Other Start: 06-12-2023 Telephone encounter Manisha Montero [facility] [employer] Start: 02-16-2023 End: 02-16-[address] MANISHA MONTERO Facility:[facility] Start: 02-13-2023 End: 02-13-2023 ambulatory Imad Asaad Facility:[facility] Start: 02-11-2023 End: 02-11-2023 ambulatory Imad Asaad Other [facility] Other Start: 02-11-2023 Telephone encounter Imad Asaad [facility] [employer] Start: 02-10-2023 End: 02-10-2023 ambulatory Imad Asaad Other [facility] Other Start: 02-10-2023 Office outpatient ne w 45 minutes Imad Asaad [facility] Start: 02-04-2023 End: 02-04-2023 ambulatory Manisha Montero Other [facility] Other Start: 02-04-2023 Telephone encounter Manisha Montero [facility] Start: 02-03-2023 End: 02-04-[address] MANISHA MONTERO Facility:[facility] Start: 02-02-2023 End: 02-02-[address] MANISHA MONTERO Facility:[facility] Start: 01-31-[address] MANISHA MONTERO Facil ity:[facility] Start: 01-03-2023 End: 01-03-2023 ambulatory Manisha Montero Other [facility] Other Start: 01-03-2023 Office outpatient visit 15 minutes Manisha Montero [facility] Start: 12-22-2022 End: 12-23-[address] MANISHA MONTERO Facility:[facility] Start: 11-22-2022 End: 11-22-2022 ambulatory Manisha Montero Other [facility] Other Start: 11-22-2022 Telephone encounter Manisha Montero [facility] Start: 11-15-2022 End: 11-16-[address] MANISHA MONTERO Facility:[facility] Start: 08-01-2022 End: 08-02-[address] MANISHA MONTERO Facility:[facility] Start: 05-21-2022 End: 05-21-[address] MANISHA MONTERO Facility:[facility] Payers Date Payer Category Payer Unknown [id number] 2004 Unknown [id number] 2.16.84 [id number] 2004 Unknown [id number] 2.16.84 [id number] 2004 Unknown [id number] 2.16.84 [id number] 2004 Unknown [id number] 2.16.84 [id number] 2004 Unknown [id number] 2.16.84 [id number] 2004 Unknown [id number] 2.16.84 [id number] 2004 Unknown [id number] 2.16.84 [id number] 2004 Unknown [id number] 2.16.84 [id number] 1959 Self-pay 1959 Unknown [id number] 1959 Unknown [id number] Unknown [id number] 2.16.8 [id number] Social History Date Type Detail Facility Unknown if ever smoked [facility] Other Sex Assigned At Sex Assigned At Bir th [facility] Other Progress note 02-17-2024 Note Date & Type Note Facility 02-17-2024 Note [facility] Consult Note Reason for visit: palpitations, tachycardia HPI: Julio Black is a 19 y.o. year old with past medical history of palpitations, asthma. She has a longstanding history of palpitations since childhood It does cause symptoms of anxiety and lightheadedness. She was seen by Kimberly RODRIGUEZ on 12/22/2023 and a 30-day event monitor was ordered. Blood in terms of TSH profile was done on 02/09/2024 which turned out to be normal. she states that she felt like she was about to pass out when she experiences episode for the first time and describes these episodes as a vibration sensation which seems to correlate with PVCs and event monitor. she states that she feels these episodes more so when she is active and exercising patient is not aware of any sudden in the family. ECG 2.5.24 SR with incomplete RBBB Echo 10/2022 unremarkable Holter 07/2022 Event monitor placed from 12/22/2023 to 01/21/2024 revealed sinus rhythm with PVCs but the burden was noted to be less than 1% there were multiple patient triggered events which coincided with nonsustained VT of 4 beats on 01/08/2024 at 1:53 PM while others events correlated with sinus rhythm predominantly. there was 1 event on 12/22/2023 at 8:10 PM when she was noted to have long RP tachycardia. The lower the fastest heart rate was noted on 12/28/2023 at 2:14 PM when the heart rate was noted to increase from 130 beats to 160 beats and then gradually reducing back to 130 beats. This is most suggestive of sinus tachycardia as she states that this was most likely when she was sprinting outdoors. PMH: Past Medical History: Diagnosis Date Asthma Diverticulosis PSH: History reviewed. No pertinent surgical history. SH: Social Determinants of Health Tobacco Use: Low Risk (02/17/2024) Patient History Smoking Tobacco Use: Never Smokeless Tobacco Use: Never Passive Exposure: Not on file Alcohol Use: Not on file Financial Resource Strain: Not on file Food Insecurity: Not on file Transportation Needs: Not on file Physical Activity: Not on file Stress: Not on file Social Connections: Not on file Intimate Partner Violence: Unknown (01/08/2024) [place] Safety & Environment Fear of Current or Ex-Partner: Not on file Emotionally Abused: Not on file Physically Abused: Not on file Sexually Abused: Not on file Physically or Sexually Abused: Not on file Depression: Not on file Housing Stability: Not on file Utilities: Not on file Allergies: No Known Allergies Weight: 64.9kg Visit Vitals BP 100/62 (BP Location: Left arm, Patient Position: Sitting, BP Cuff Size: Adult) Pulse 61 Resp 12 Ht 1.651 m (5' 5 ) Wt 64.9 kg (143 lb) SpO2 99% BMI 23.80 kg/m??? Smoking Status Never BSA 1.73 m??? Meds: Current Outpatient Medications on File Prior to Visit Medication Sig Dispense Refill fluticasone propion-salmeteroL (Advair) 230-21 mcg/actuation inhaler 2 puffs. No current facility-administered medications on file prior to visit. ROS: Review of Systems Cardiovascular: Positive for chest pain ( discomfort ), dyspnea on exertion and palpitations. Neurological: Positive for light-headedness. All other systems reviewed and are negative. Physical Exam: Constitutional General Appearance: well-nourished, well-developed, [...] to the encounter. Assessment and Plan: Palpitations/tachycardia PVC The patient has good evidence of nonsu (more content not included)... [facility] Progress note 12-22-2023 Note Date & [...] All other systems reviewed and are negative. [facility] Progress note 12-22-2023 Note Date & Type Note Facility 12-22-2023 Note [facility] Consult Note Reason for visit: palpitations, [...] thyroid concerns Kimberly Chowdhury NP Cardiac Electrophysiology [facility] Evaluation note 11-27-2023 Note Date & Type Note Facility 11-27-2023 Evaluation note Encounter Date Diagnosis Assessment Notes Nov, Irregular heart rate (ICD-10 - I49.9) Had Holter and Echo in 10/2022. Pt agrees to cardiology referral. Will go over directly and get EKG today. Nov, Vasovagal syncope (ICD-10 - R55) as above [facility] Other Evaluation note 07-22-2023 Note Date & [...] SPF daily even when not [place]park. [facility] Other Evaluation note 02-10-2023 Note Date & [...] increase daily fiber intake. Arrange for colonoscopy. [facility] Other Evaluation note 01-03-2023 Note Date & [...] young for imaging. Will start w US. [facility] Other Evaluation note Note Date & Type Note Facility Evaluation note No Information [facility] Other History general Narrative - Reported Note Date & Type Note Facility History general Narrative - Reported Type Medical History Asthma Medical History Intermittent palpitations Medical History Chronic constipation Medical History Uvular edema Medical History Diverticulitis Medical History Colitis [facility] Other Reason for visit Narrative Note Date & Type Note Facility Reason for visit Narrative Patient here at the request of Dr. Montero for evaluation & treatment of colitis/diverticulitis. [facility] Other Reason for Referral Reason Either [facility] o r [facility] -had holter and echo in 2021. Continues to feel presyncopal when going from sitting to standing. Has never had a tilt table. Diagnosis 1 Irregular heart rate (I49.9) Referral Organization [facility] C linmichael Referring Provider First Name Manisha Referring Provider Last Name Montero Referring Provider Specialty Family Medi cine Referred Organization Unknown Facility Referred Provider Specialty Cardiology Referral Priority Routine Reason 02/10/23 CT from Con [facility], todays note. Never saw GI in the past. Diagnosis 1 Diverticulitis (K57. 92) Referral Organization [facility] C linmichael Referring Provider First Name Manisha Referring Provider Last Name Montero Referring Provider Specialty Family Medi cine Referred Organization [facility] Gastroenterolo gy Referred Provider Yony Shea Referred Address [address],[facility] [address], [place],[address] Referred Provider Specialty Gastroentero logy Referral Priority [...] section and content) DATE CREATED AUTHOR 02/21/2023 [facility] DATE CREATED AUTHOR AUTHOR'S ORGANIZ ATION 04/01/2023 [facility] DATE CREATED AUTHOR AUTHOR'S ORGANIZ ATION 02/18/2024 [facility] FOR RECORDS PERTAINING TO PATIENTS WHO ARE [...] BE BASED ON THE PRIMARY CLINICAL RECORDS. [employer] provides no warranty or guarantee of the accuracy or completeness of information in this document.
== END 2024-02-24 08:30 | disposition home or self-care (01) ==
LOC: CARD 08:29
PROVIDERS: PCP Family Medicine; Visit Provider Internal Medicine Cardiovascular Disease
DX: I47.20 Ventricular tachycardia, unspecified (principal); R94.31 Abnormal electrocardiogram [ECG] [EKG]
CPT/HCPCS: 93017

== ENCOUNTER 2024-03-01 20:27 | Emergency (ER) | payer OTHER, SELFPAY ==
[2024-03-01 20:29] VITALS: BP 148/77; PULSE 60; TEMP 36.8; O2SAT 100
--- NOTE | 2024-03-01 20:40 | ED.GENADUL1 ---
HPI HPI - General Adult General Chief complaint: Skin/Abscess/Foreign Body Stated complaint: LACERATION Time Seen by Provider: 03/01/24 20:33 Source: patient Mode of arrival: walk-in History of Present Illness HPI narrative: This 19-year-old female presents for evaluation of a laceration to her right anterior distal forearm. She is right-hand dominant. She states that her V Box was broken and one of her vidoe games was inside the X Box that she was trying to disassemble biopsy box using a screwdriver. The screwdriver slipped and caught her. She has an approximately 1 cm laceration to the right lateral distal forearm. There is no active bleeding. There is no numbness or tingling. The laceration does not violate the fascia. Related Data Home Medications ?Medication ?Instructions ?Recorded ?Confirmed fluticasone propionate 115 inhalation 02/04/24 mcg-salmeterol 21 mcg/actuation HFA inhaler Allergies Allergy/AdvReac Type Severity Reaction Status Date / Time No Known Drug Allergies Allergy Verified 02/04/24 23:31 Opioid HPI Opioid Management Most Recent Opioid Data: Last Pain Scale 0 02/04/24 23:33 Review of Systems ROS Status of ROS 10 or more systems reviewed and unremarkable except as noted in history and below Exam Narrative Exam Narrative: Nurses note and vital signs reviewed and patient is not hypoxic. General: The patient appears well and in no apparent distress. Patient is resting comfortably on cart. Skin: Warm, dry, no pallor noted. There is no rash noted. Head: Normocephalic, atraumatic Eye: Normal conjunctiva, no drainage, EOMI. PERRL Cardiovascular: Regular Rate and Rhythm Respiratory: Patient is in no distress, no accessory muscle use, lungs are clear to auscultation, no wheezing, rales or rhonchi Musculoskeletal: 1 cm superficial laceration to the right distal forearm, patient is able to make a fist and approximate thumb and all fingers. There is no tendon injury. The laceration does not violate the fascia. Neurological: A&O x4, normal speech Psychiatric: Cooperative Constitutional Vital Signs, click to edit/add: Last Vital Signs Temp 98.2 F 03/01/24 20:29 Pulse 60 03/01/24 20:29 Resp 18 03/01/24 20:29 BP 148/77 H 03/01/24 20:29 Pulse Ox 100 03/01/24 20:29 O2 Del Method Room Air 03/01/24 20:29 Course Vital Signs Vital signs: Vital Signs Temperature 98.2 F 03/01/24 20:29 Pulse Rate 60 03/01/24 20:29 Respiratory Rate 18 03/01/24 20:29 Blood Pressure 148/77 H 03/01/24 20:29 Pulse Oximetry 100 03/01/24 20:29 Oxygen Delivery Method Room Air 03/01/24 20:29 Temperature 98.2 F 03/01/24 20:29 Pulse Rate 60 03/01/24 20:29 Respiratory Rate 18 03/01/24 20:29 Blood Pressure 148/77 H 03/01/24 20:29 Pulse Oximetry 100 03/01/24 20:29 Oxygen Delivery Method Room Air 03/01/24 20:29 Medical Decision Making MDM Narrative Medical decision making narrative: 19-year-old female who is right-hand dominant presents for evaluation of a laceration to the right distal forearm. The laceration was cleaned and closed with 5, 3-0 ethilon sutures. Td was updated and wound care was discussed with the patient. Discharge Plan Discharge Stand Alone Forms: Portal Instructions Chief Complaint: Skin/Abscess/Foreign Body Clinical Impression: Laceration of forearm Patient Disposition: Home, Self-Care Time of Disposition Decision: 21:02 Condition: Good Prescriptions / Home Meds: No Action fluticasone propion-salmeterol 115-21 mcg/actuation HFA aerosol inhaler INHALATION Print Language: Luxem[place]ish Instructions: Care For Your Stitches (ED), Laceration (ED) Additional Instructions: sutures can be removed in 10-12 days Referrals: Manisha Small MD [Primary Care Provider] - 1 week Procedures ED Procedure Instructions Procedures Procedures: Right distal forearm laceration repair: Skin was irrigated with copious Hibiclens solution and the wound edges were infiltrated with 1 percent lidocaine. 5, 3-0 Ethilon sutures were placed into the laceration with good wound edge approximation. Patient tolerated procedure well. A bacitracin dressing was applied and tetanus was updated
--- OUTSIDE RECORDS SUMMARY | 2024-03-01 20:49 | XMS_ITS | CCD ---
Author Organization [facility] Care Team Providers Care Patient Services Assistant Name Role Phone Manisha Montero Unavailable Asaad, [...] Care Unavailable KATIE SUÁREZ Admitting Unavailable NICOLAS ., KATIE Attending Unavailable DIAB ., KATIE Consulting Unavailable KIMBERLY CHOWDHURY Attending [...] Active Advair HFA 230-2 1 MCG/ACT (Prior Auth#:[id number]) Inhalation for 30 Active methylPREDNISolone 4 mg oral tablet (1 source) Corticosteroid Start: 06-09-2023 methylPREDNISo lone 4 MG as directed Orally for 6 days May, Active polyethylene glycol 3350 748744 mg / potassium chloride 2970 mg / sodium bicarbonate 6740 mg / sodium chloride 5860 mg / sodium sulfate 63681 mg powder for oral solution (2 sources) [...] 12-24-2022 Episodic Other aftercare (1 source) Other philosophy specialist (current) drug therapy; 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] Onset: 12-24-2022 Episodic Other [...] Range Facility Office Visiton 02-17-2024 Follow-up visit [id number] Julio Black 2005 F Date Provider Department Center 02/17/2024 IVANNA RAM IDRIS [facility] Family History Problem Relation Age of Onset Crohn's disease Father Family Status - Relation Status Age at Father Level of Service:00286 IN OFFICE/OUTPATIENT NEW MODERATE MDM 45 MINUTES Reason for Visit and Comments: Follow-up [008702] - 2 MONTH FOLLOW UP Normal [facility] Office Visiton 12-22-2023 Follow-up visit [id number] Julio Black 2005 F Date Provider Department Center 12/22/2023 1596-KIMBERLY CHOWHDURY CARD [facility] Family History Problem Relation Age of Onset Crohn's disease Father Family Status - Relation Status Age at Father Level of Service:22189 IN OFFICE/OUTPATIENT NEW LOW MDM 30 MINUTES Normal [facility] CT ABD/PELVIS WO CONon 02-16 CT [...] No acute renal pathology. Electronically authenticated by: CHANTerence PETTIT Date: 2023-02-15 23:32 Normal [facility] HCG,Urineon 02-13-2023 Beta HCG ( test) Ql (U) Negative Normal [facility] Comment on above: Result Comment: PERF ORMED BY: [place] [address] PATHOLOGIST WHEELCHAIR RENTAL CLERK CLARKE ALRKIN M.D. Performed By: #### U HCG #### [address] US BREAST BASHIR LIMITEDon 01-16 US BREAST BASHIR LIMITED Patient: JULIO BLACK Exam Date: 02/03/2023 : 2005 Gender:F Ordering : DR MANISHA MONTERO M.D. Admission #: [id number] Family : Order #: [id number] CLICK HERE TO VIEW EXAM RADIOLOGY REPORT [...] Henriquez M.D. on 02/03/2023 at 16:33 Normal [facility] CT ABD/PELV W CONon 12-23-19 23 [...] AREN MCCOLLUM Date: 2022-12-22 22:43 Normal [facility] AMYLASEon 12-22-2022 Amylase [Catalytic activity/Vol] 49 U/L Normal 25-115 [facility] Comment on above: Performed By: #### L IPA, JOHN, CMP ####[facility] [address] [place] [address]DrLiliana Bird CBC AUTO DIFFon 12-22-2022 BASO # 0.1 103/ul Normal 0.0-0.1 [facility] Comment on above: Performed By: #### C BC ####[facility] [address] [place] [id number]. Ronald Bird Basophils/100 WBC (Bld) 0.7 % Normal 0.2-2.0 [facility] Comment on above: Performed By: #### C BC ####[facility] [address] [place] [id number] Bird EO # 0.9 103/ul Critically high 0.0-0.7 [facility] Comment on above: Performed By: #### C BC ####[facility] [address] [place] [id number] Bird Eosinophils/100 WBC (Bld) 8.4 % Critically high 0.9-7.0 [facility] Comment on above: Performed By: #### C BC ####[facility] Sr[address] [place], [place] [address]Dr. Ronald Pelon Erythrocyte distribution width (RBC) [Ratio] 13.8 % Normal 11.0-15.0 [facility] Comment on above: Performed By: #### C BC ####[facility] Ajq[address]ryr[address] [place], [place] [address]Dr. Amandazunilda Bird Hematocrit (Bld) [Volume fraction] 40.9 % Normal 36.0-48.0 [facility] Comment on above: Performed By: #### C BC ####[facility] Z[address]houvlnk[address] [place], [place] [address]Dr. Ronald Bird Hemoglobin (Bld) [Mass/Vol] 12.8 g/dL Normal 12.0-16.0 [facility] Comment on above: Performed By: #### C BC ####[facility] [address]ubmwl[address] [place], [place] [address]Dr. Ronald Bird IG # 0.02 10e3/ul Normal 0.00-0.03 [facility] Comment on above: Performed By: #### C BC ####[facility] Yqoon[address]aioc[address] [place], [place] [address]Dr. Ronald Bird IG % 0.2 % Normal 0.0-0.5 [facility] Comment on above: Performed By: #### C BC ####[facility] Ajfyrsyqrh[address] [place], [place] [address]DrLiliana Bird LYMPH # 3.3 103/ul Normal 1.2-3.8 [facility] Comment on above: Performed By: #### C BC ####[facility] Imsuadjc[address] [place], [place] [address]DrLiliana Bird Lymphocytes/100 WBC (Bld) 31.6 % Normal 20.5-60.0 [facility] Comment on above: Performed By: #### C BC ####[facility] Or[address]fryt[address] [place], [place] [address]DrLiliana Bird MANUAL DIFF REQ NO Normal [facility] Comment on above: Performed By: #### C BC ####[facility] [address] [place] [address]DrLiliana Bird MCH (RBC) [Entitic mass] 27.8 pg Normal 26.7-34.0 [facility] Comment on above: Performed By: #### C BC ####[facility] [address]hqz[address] [place], [place] [address]DrLiliana Bird MCHC (RBC) [Mass/Vol] 31.3 g/dL Normal 29.9-35.2 [facility] Comment on above: Performed By: #### C BC ####[facility] Ulglovrquv[address] [place], [place] [address]DrLiliana Bird MCV (RBC) [Entitic vol] 88.9 fL Normal 81.0-99.0 [facility] Comment on above: Performed By: #### C BC ####[facility] Y[address]ac[address] [place], [place] [address]DrLiliana Bird MONO # 1.0 103/ul Critically high 0.3-0.8 [facility] Comment on above: Performed By: #### C BC ####[facility] Exklyoyibn[address] [place], [place] [address]DrLiliana Bird Monocytes/100 WBC (Bld) 9.5 % Normal 1.7-12.0 [facility] Comment on above: Performed By: #### C BC ####[facility] Br[address]dcpxcsi[address] [place], [place] [address]DrLiliana Bird NEUT # 5.1 103/ul Normal 1.4-6.5 [facility] Comment on above: Performed By: #### C BC ####[facility] [address]oswyd[address] [place], [place] [address]DrLiliana Bird Neutrophils/100 WBC (Bld) 49.6 % Normal 43.0-75.0 [facility] Comment on above: Performed By: #### C BC ####[facility] C[address]vjp[address] [place], [place] [address]DrLiliana Bird Platelet mean volume (Bld) [Entitic vol] 10.4 fL Normal 9.5-13.5 [facility] Comment on above: Performed By: #### C BC ####[facility] [address] [place] [address]DrLiliana Bird PLT 269 103/ul Normal 150-450 [facility] Comment on above: Performed By: #### C BC ####[facility] [address]pv[address] [place] [address]DrLiliana Bird RBC 4.60 106/ul Normal 4.20-5.40 [facility] Comment on above: Performed By: #### C BC ####[facility] I[address]xs[address] [place], [place] [address]DrLiliana Bird WBC 10.3 103/ul Normal 4.0-11.0 [facility] Comment on above: Performed By: #### C BC ####[facility] Qkuyrntfpp[address] [place], [place] [address]Dr. Ronlad Bird ER URINE PROFILEon 3 Bilirubin Ql (U) Negative Normal NEGATIVE [facility] Comment on above: Performed By: #### E RUR #### [facility] [address] [place] [address] Dr. Ronald Bird Clarity (U) CLEAR Normal CLEAR [facility] Comment on above: Performed By: #### E RUR #### [facility] [address] [place] [address] Dr. Ronald Bird Color (U) YELLOW Normal YELLOW [facility] Comment on above: Performed By: #### E RUR #### [facility] [address] [place] [address] Dr. Ronald Bird ERUAHD A micrscopic examination will be performed if indicated. Normal [facility] Comment on above: Performed By: #### E RUR #### [facility] [address] [place] [address] Dr. Ronald Bird Glucose Ql (U) Negative Normal NEGATIVE [facility] Comment on above: Performed By: #### E RUR #### [facility] [address] [place] [address] Dr. Ronald Bird Hemoglobin Ql (U) Negative Normal NEGATIVE [facility] Comment on above: Performed By: #### E RUR #### [facility] [address] [place] [address] Dr. Ronald Bird Ketones Ql (U) Negative Normal NEGATIVE [facility] Comment on above: Performed By: #### E RUR #### [facility] [address] [place] [address] Dr. Ronald Bird LEUKOCYTES Negative Normal NEGATIVE [facility] Comment on above: Performed By: #### E RUR #### [facility] [address] [place] [address] Dr. Ronald Bird Nitrite Ql (U) Negative Normal NEGATIVE [facility] Comment on above: Performed By: #### E RUR #### [facility] [address] [place] [address] Dr. Ronald Bird pH (U) 7.0 [pH] Normal 5-9 [facility] Comment on above: Performed By: #### E RUR #### [facility] [address] [place] [address] Dr. Ronald Bird SPEC GRAVITY 1.020 Normal 1.005-<=1.025 [facility] Comment on above: Performed By: #### E RUR #### [facility] [address] [place] [address] Dr. Ronald Bird UA PROTEIN Negative Normal NEGATIVE/ TRACE [facility] Comment on above: Performed By: #### E RUR #### [facility] [address] [place] [address] Dr. Ronlad Bird UR MICRO IND NOT INDICATED Normal [facility] Comment on above: Performed By: #### E RUR #### [facility] [address] [place] [address] Dr. Ronald Bird Urobilinogen Qn (U) 1.0 {Reese'U}/dL Normal 0.2 - 1.0 [facility] Comment on above: Performed By: #### E RUR #### [facility] [address] [address] [address] Ronald Bird LIPASEon 12-22-2022 Lipase [Catalytic activity/Vol] 76.0 U/L Normal 73.0-393.0 [facility] Comment on above: Performed By: #### L IPA JOHN, CMP ####[facility] [address] [place] [address]Dr. Ronald Bird PROF 14(COMP METB)on 023 Albumin [Mass/Vol] 4.3 g/dL Normal 3.4-5.0 [facility] Comment on above: Performed By: #### L IPA JOHN, CMP #### [facility] [address] [address] [address] Ronald Bird Albumin/Globulin [Mass ratio] 1.2 {ratio} Normal [facility] Comment on above: Performed By: #### L IPA JOHN, CMP #### [facility] [address] [place] [address] Dr. Ronald Bird ALP [Catalytic activity/Vol] 80 U/L Normal 46-116 [facility] Comment on above: Performed By: #### L IPA JOHN, CMP #### [facility] [address] [place] [address] Dr. Ronald Bird ALT [Catalytic activity/Vol] 15 U/L Normal 14-59 [facility] Comment on above: Performed By: #### L IPA JOHN, CMP #### [facility] [address] [address] [address] Ronald Bird Anion gap [Moles/Vol] 15.1 mmol/L Normal [facility] Comment on above: Performed By: #### L IPA JOHN, CMP #### [facility] [address] [address] [address] Ronald Bird AST [Catalytic activity/Vol] 18 U/L Normal 15-37 [facility] Comment on above: Performed By: #### L IPA, JOHN, CMP #### [facility] [address] [address] [address] Ronald Bird Bilirubin [Mass/Vol] 0.2 mg/dL Normal 0.2-1.0 [facility] Comment on above: Performed By: #### L JOHN WISDOM, CMP #### [facility] [address] [address] [address] Ronald Bird Calcium [Mass/Vol] 9.5 mg/dL Normal 8.5-10.1 [facility] Comment on above: Performed By: #### L IPA JOHN, CMP #### [facility] [address] [place] [address] Dr. Ronald Bird Chloride [Moles/Vol] 99 mmol/L Normal 98-107 [facility] Comment on above: Performed By: #### L ARTIS JOHN, CMP #### [facility] [address] [place] [address] Dr. Ronald Bird CO2 [Moles/Vol] 28.4 mmol/L Normal 21.0-32.0 [facility] Comment on above: Performed By: #### L JOHN WISDOM, CMP #### [facility] [address] [place] [address] Dr. Ronald Bird Creatinine [Mass/Vol] 0.63 mg/dL Normal 0.55-1.02 [facility] Comment on above: Performed By: #### L JOHN WISDOM, CMP #### [facility] [address] [place] [address] Dr. Ronald Bird EGFR-AF AZERBAIJANI >60 Normal >=60 [facility] Comment on above: Performed By: #### L JOHN WISDOM, CMP #### [facility] [address] [place] [address] Dr. Ronald Bird EGFR-NON AF AZERBAIJANI >60 Normal >=60 [facility] Comment on above: Performed By: #### L JOHN WISDOM, CMP #### [facility] [address] [place] [address] Dr. Ronald Bird Globulin (S) [Mass/Vol] 3.6 g/dL Normal [facility] Comment on above: Performed By: #### L ARTIS JOHN, CMP #### [facility] [address] [place] [address] Dr. Ronald Bird Glucose [Mass/Vol] 100 mg/dL Normal 74-106 [facility] [place] Comment on above: Performed By: #### L JOHN WISDOM, CMP #### [facility] [address] [place] [address] Dr. Ronald Bird Potassium [Moles/Vol] 3.5 mmol/L Normal 3.5-5.1 [facility] Comment on above: Performed By: #### L JOHN WISDOM, CMP #### [facility] [address] [place] [address] Dr. Ronald Bird Protein [Mass/Vol] 7.9 g/dL Normal 6.4-8.2 [facility] Comment on above: Performed By: #### L JOHN WISDOM, CMP #### [facility] [address] [place] [address] Dr. Ronald Bird Sodium [Moles/Vol] 139 mmol/L Normal 136-145 [facility] Comment on above: Performed By: #### L JOHN WISDOM, CMP #### [facility] [address] [place] [address] Dr. Ronald Bird Urea nitrogen [Mass/Vol] 7.0 mg/dL Normal 6.4-19.3 [facility] Comment on above: Performed By: #### L JOHN WISDOM, CMP #### [facility] [address] [place] [address] Dr. Ronald Bird Urea nitrogen/Creatinin e [Mass ratio] 11.1 mg/mg Normal [facility] Comment on above: Performed By: #### L JOHN WISDOM, CMP #### [facility] [address] [place] [address] Dr. Ronald Bird ECHOCARDIO M/2D COMPLETEon 1 ECHOCARDIO M/2D COMPLETE Patient: GUS JULIO Reynoso Exam Date: 11/15/2022 : 2005 Gender:F Ordering : DR MANISHA MONTERO M.D. Admission #: [id number] Family : Order #: [id number] CLICK HERE TO VIEW EXAM ECHOCARDIOGRAM REPORT [...] Helms M.D. on 11/19/2022 at 10:38 Normal [facility] AMYLASEon 05-21-2022 Amylase [Catalytic activity/Vol] 45 U/L Normal 25-115 [facility] Comment on above: Performed By: #### C JOHN RIOS LIPA #### [facility] [address] [place], [place] [address] Dr. Ronald Bird CBC AUTO DIFFon 05-21-2022 BASO # 0.0 103/ul Normal 0.0-0.1 [facility] Comment on above: Performed By: #### C BC ####[facility] [address] [place] [address]DrLiliana Bird Basophils/100 WBC (Bld) 0.2 % Normal 0.2-2.0 [facility] Comment on above: Performed By: #### C BC ####[facility] [address] [place] [address]DrLiliana Bird EO # 0.2 103/ul Normal 0.0-0.7 [facility] Comment on above: Performed By: #### C BC ####[facility] [address] [place] [address]DrLiliana Bird Eosinophils/100 WBC (Bld) 1.2 % Normal 0.9-7.0 [facility] Comment on above: Performed By: #### C BC ####[facility] [address] [place] [address]DrLiliana Bird Erythrocyte distribution width (RBC) [Ratio] 12.8 % Normal 11.0-15.0 [facility] Comment on above: Performed By: #### C BC ####[facility] [address] [place] [address]DrLiliana Ronald Bird Hematocrit (Bld) [Volume fraction] 39.0 % Normal 36.0-48.0 [facility] Comment on above: Performed By: #### C BC ####[facility] [address] [place] [address]DrLiliana Ronald Bird Hemoglobin (Bld) [Mass/Vol] 13.1 g/dL Normal 12.0-16.0 [facility] Comment on above: Performed By: #### C BC ####[facility] [address] [place] [address]DrLiliana Ronald Bird IG # 0.07 10e3/ul Critically high 0.00-0.03 [facility] Comment on above: Performed By: #### C BC ####[facility] [address] [place] [address]DrLiliana Ronald Pelon IG % 0.4 % Normal 0.0-0.5 [facility] Comment on above: Performed By: #### C BC ####[facility] [address] [place] [address]DrLiliana Ronald Bird LYMPH # 0.6 103/ul Critically low 1.2-3.8 [facility] Comment on above: Performed By: #### C BC ####[facility] [address] [place] [address]DrLiliana Ronald Pelon Lymphocytes/100 WBC (Bld) 3.6 % Critically low 20.5-60.0 [facility] Comment on above: Performed By: #### C BC ####[facility] [address] [place] [address]DrLiliana Ronald Pelon MANUAL DIFF REQ NO Normal [facility] Comment on above: Performed By: #### C BC ####[facility] [address] [place] [address]DrLiliana Ronald Pelon MCH (RBC) [Entitic mass] 29.1 pg Normal 26.7-34.0 [facility] Comment on above: Performed By: #### C BC ####[facility] [address] [place] [address]Dr. Ronald Bird MCHC (RBC) [Mass/Vol] 33.6 g/dL Normal 29.9-35.2 [facility] Comment on above: Performed By: #### C BC ####[facility] [address] [place] [address]DrLiliana Ronald Pelon MCV (RBC) [Entitic vol] 86.7 fL Normal 81.0-99.0 [facility] Comment on above: Performed By: #### C BC ####[facility] [address] [place] [address]DrLiliana Bird MONO # 0.9 103/ul Critically high 0.3-0.8 [facility] Comment on above: Performed By: #### C BC ####[facility] [address] [place] [address]Dr. Ronald Bird Monocytes/100 WBC (Bld) 5.3 % Normal 1.7-12.0 [facility] Comment on above: Performed By: #### C BC ####[facility] [address] [place], [place] [address]DrLiliana Patelzunilda Bird NEUT # 15.7 103/ul Critically high 1.4-6.5 [facility] Comment on above: Performed By: #### C BC ####[facility] [address] [place] [id number] Bird Neutrophils/100 WBC (Bld) 89.3 % Critically high 43.0-75.0 [facility] Comment on above: Performed By: #### C BC ####[facility] [address] [place], [place] [address]DrLiliana Bird Platelet mean volume (Bld) [Entitic vol] 10.4 fL Normal 9.5-13.5 [facility] Comment on above: Performed By: #### C BC ####[facility] [address] [place] [id number] Bird PLT 208 103/ul Normal 150-450 [facility] Comment on above: Performed By: #### C BC ####[facility] [address] [place], [place] [address]TzDr. Ronald Bird RBC 4.50 106/ul Normal 4.20-5.40 [facility] Comment on above: Performed By: #### C BC ####[facility] S[address]fp[address] [place], [place] [address]KgDr. Ronald Bird WBC 17.5 103/ul Critically high 4.0-11.0 [facility] Comment on above: Performed By: #### C BC ####[facility] [address]flmux[address] [place], [place] [address]LeDr. Ronald Bird Covid-19 PCR (CVDTB)on SARS-CoV-2 (COVID-19) RNA TERRY+probe Ql (Unsp spec) Not detected Normal NOT DETECTED [facility] Comment on above: Result Comment: When diagnostic [...] for this test is supported by the Business Continuity Strategy Director of Health and Human Service's declaration that [...] used). Performed By: #### C VDTBH #### [facility] [address] [place], [place] [address] Dr. Ronald Bird ER URINE PROFILEon 2 Bilirubin Ql (U) Negative Normal NEGATIVE [facility] Comment on above: Performed By: #### E RUR ####[facility] Co[address]fmeg[address] [place], [place] [address]XtDr. Ronald Bird Clarity (U) CLEAR Normal CLEAR [facility] Comment on above: Performed By: #### E RUR ####[facility] [address]wcwgs[address] [place], [place] [address]Dr. Ronald Bird Color (U) LT. YELLOW Normal YELLOW [facility] Comment on above: Performed By: #### E RUR ####[facility] [address] [place], [place] [address]Dr. Ronald Bird ERUAHD A micrscopic examination will be performed if indicated. Normal [facility] Comment on above: Performed By: #### E RUR ####[facility] [address]qsjbcu[address] [place], [place] [address]Dr. Ronald Bird Glucose Ql (U) Negative Normal NEGATIVE [facility] Comment on above: Performed By: #### E RUR ####[facility] [address]zh[address] [place], [place] [address]Dr. Ronald Bird Hemoglobin Ql (U) Negative Normal NEGATIVE [facility] Comment on above: Performed By: #### E RUR ####[facility] [address]emme[address]ffh[address] [place], [place] [address]Dr. Ronald Bird Ketones Ql (U) Negative Normal NEGATIVE [facility] Comment on above: Performed By: #### E RUR ####[facility] Kmxnxriqkc[address] [place], [place] [address]Dr. Ronald Bird LEUKOCYTES Negative Normal NEGATIVE [facility] Comment on above: Performed By: #### E RUR ####[facility] H[address]vinsgsm[address] [place], [place] [address]Dr. Ronald Bird Nitrite Ql (U) Negative Normal NEGATIVE [facility] Comment on above: Performed By: #### E RUR ####[facility] J[address]cdbbhgdm[address] [place], [place] [address]Dr. Ronald Bird pH (U) 7.0 [pH] Normal 5-9 [facility] Comment on above: Performed By: #### E RUR ####[facility] [address]feuc[address] [place], [place] [address]Dr. Ronald Bird SPEC GRAVITY <=1.005 Abnormal 1.005-<=1.025 [facility] Comment on above: Performed By: #### E RUR ####[facility] Z[address]ykiklte[address] [place], [place] [address]Dr. Amandazunilda Bird UA PROTEIN Negative Normal NEGATIVE/ TRACE [facility] Comment on above: Performed By: #### E RUR ####[facility] [address]zhza[address] [place], [place] [address]Dr. Ronald Bird UR MICRO IND NOT INDICATED Normal [facility] Comment on above: Performed By: #### E RUR ####[facility] [address]zhtjc[address] [place], [place] [address]Dr. Ronald Bird Urobilinogen Qn (U) 0.2 {Reese'U}/dL Normal 0.2 - 1.0 [facility] Comment on above: Performed By: #### E RUR ####[facility] [id number] [place], [place] [address]Dr. Ronald Bird GROUP A STREP CULTUREon S. pyogenes Ag Ql (Unsp spec) Culture Observations: NEGATIVE FOR GROUP A STREPTOCOCCUS. Normal [facility] Comment on above: Performed By: #### S SCRN GRASTCX ####[facility] [address] [place], [place] [address]Dr. Ronald Bird INFLUENZA A AND B AGon 05-21 INFLUENZA A AG Negative Normal NEGATIVE SEE COMMENT [facility] Comment on above: Performed By: #### I NFLUAB ####[facility] [id number] [place], [place] [address]Dr. Ronald Bird INFLUENZA B AG Negative Normal NEGATIVE SEE COMMENT [facility] Comment on above: Performed By: #### I NFLUAB ####[facility] [id number] [place], [place] [address]Dr. Ronald Bird INFLUPOSH SEE BELOW Normal [facility] Comment on above: Result Comment: NOTE : Live attenuated influenzae vaccine viruses can cause a positive result for a rapid influenza diagnostic test if administered up to 7 days prior to rapid testing. Performed By: #### I NFLUAB ####[facility] [address] [address]Dr. Ronald Bird INFLUPOSHB SEE BELOW Normal [facility] Comment on above: Result Comment: NOTE : Live attenuated influenzae vaccine viruses can cause a positive result for a rapid influenza diagnostic test if administered up to 7 days prior to rapid testing. Performed By: #### I NFLUAB ####[facility] [address] [address]DrLiliana Bird INTERNAL CONTROLS Within Normal Limits Normal Wi thin Normal Limits [facility] Comment on above: Performed By: #### I NFLUAB ####[facility] [id number] [address]Dr. Ronald Bird LIPASEon 05-21-2022 Lipase [Catalytic activity/Vol] 62.0 U/L Critically low 73.0-393.0 [facility] Comment on above: Performed By: #### C JOHN RIOS LIPA #### [facility] [address] [place] [address] Dr. Ronald Bird PROF 14(COMP METB)on 022 Albumin [Mass/Vol] 4.1 g/dL Normal 3.4-5.0 [facility] Comment on above: Performed By: #### C JOHN RIOS LIPA #### [facility] [address] [place] [address] Dr. Ronald Bird Albumin/Globulin [Mass ratio] 1.2 {ratio} Normal [facility] Comment on above: Performed By: #### C JOHN RIOS, LIPA #### [facility] [address] [place] [address] Dr. Ronald Bird ALP [Catalytic activity/Vol] 74 U/L Normal 46-116 [facility] Comment on above: Performed By: #### C JOHN RIOS, LIPA #### [facility] [address] [place] [address] Dr. Ronald Bird ALT [Catalytic activity/Vol] 60 U/L Critically high 14-59 [facility] Comment on above: Performed By: #### C JOHN RIOS, LIPA #### [facility] [address] [place] [address] Dr. Ronald Bird Anion gap [Moles/Vol] 13.4 mmol/L Normal [facility] Comment on above: Performed By: #### C JOHN RIOS LIPA #### [facility] [address] [address] [address] Ronald Bird AST [Catalytic activity/Vol] 46 U/L Critically high 15-37 [facility] Comment on above: Performed By: #### C JOHN RIOS LIPA #### [facility] [address] [address] [address] Ronald Bird Bilirubin [Mass/Vol] 0.6 mg/dL Normal 0.2-1.0 [facility] Comment on above: Performed By: #### C JOHN RIOS LIPA #### [facility] [address] [address] [address] Ronald Bird Calcium [Mass/Vol] 9.3 mg/dL Normal 8.5-10.1 [facility] Comment on above: Performed By: #### C JOHN RIOS, LIPA #### [facility] [address] [address] [address] Ronald Bird Chloride [Moles/Vol] 100 mmol/L Normal 98-107 [facility] Comment on above: Performed By: #### C JOHN RIOS, LIPA #### [facility] [address] [address] [address] Ronald Bird CO2 [Moles/Vol] 24.9 mmol/L Normal 21.0-32.0 [facility] Comment on above: Performed By: #### C JOHN RIOS, LIPA #### [facility] [address] [address] [address] Ronald Bird Creatinine [Mass/Vol] 0.71 mg/dL Normal 0.55-1.02 [facility] Comment on above: Performed By: #### C JOHN RIOS, LIPA #### [facility] [address] [address] [address] Ronald Bird EGFR-AF AZERBAIJANI >60 Normal >=60 [facility] Comment on above: Performed By: #### C JOHN RIOS LIPA #### [facility] [address] [address] [address] Ronald Bird EGFR-NON AF AZERBAIJANI >60 Normal >=60 [facility] Comment on above: Performed By: #### C MP, JOHN, LIPA #### [facility] [address] [address] [address] Ronald Bird Globulin (S) [Mass/Vol] 3.5 g/dL Normal [facility] Comment on above: Performed By: #### C MP, JOHN, LIPA #### [facility] [address] [address] [address] Ronald Bird Glucose [Mass/Vol] 109 mg/dL Critically high 74-106 [facility] Comment on above: Performed By: #### C MP, JOHN, LIPA #### [facility] [address] [place] [address] Dr. Ronald Bird Potassium [Moles/Vol] 3.3 mmol/L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
[2024-03-01] MEDS: LIDOCAINE HCL 1% 100 MG/10 ML MDV INJ (20:54)
[2024-03-01] MEDS: ADACEL DIPH,PERTUSS(ACELL),TET VAC/PF 0.5 ML ADULT SYRINGE IM (21:15)
[2024-03-01] MEDS: BACITRACIN OINTMENT 28.4 GM TUBE 1 APPLIC TOPICAL (21:16)
== END 2024-03-01 21:21 | disposition home or self-care (01) ==
PROVIDERS: Emergency Provider Emergency Medicine; PCP Family Medicine
DX: S51.811A Laceration without foreign body of right forearm, initial encounter (principal); Z23 Encounter for immunization; W27.0XXA Contact with workbench tool, initial encounter; Z79.899 Other long term (current) drug therapy
CPT/HCPCS: 12001; 90471; 90715; 99283

== ENCOUNTER 2024-03-11 18:06 | Emergency (ER) | payer OTHER, SELFPAY ==
[2024-03-11 18:11] VITALS: BP 122/67; PULSE 62; TEMP 36.7; O2SAT 97; BMI 23.0
--- OUTSIDE RECORDS SUMMARY | 2024-03-11 18:18 | XMS_ITS | CCD ---
Author Organization [facility] Care Team Providers Care Us Marketing Director Name Role Phone Manisha Montero Unavailable Asaad, [...] DR SORENSEN Attending Unavailable KRIS ., DR SORESNEN Consulting Unavailable AREN MCCOLLUM Consulting Unavailable WINSTON, DR MANISHA Craft Primary Care Unavailable KATIE SUÁREZ Admitting Unavailable NICOLAS Ford, KATIE Attending Unavailable DIAB ., KATIE Consulting [...] Active Advair HFA 230-2 1 MCG/ACT (Prior Auth#:[id number]) Inhalation for 30 Active methylPREDNISolone 4 mg oral tablet (1 source) Corticosteroid Start: 06-09-2023 methylPREDNISo lone 4 MG as directed Orally for 6 days May, Active polyethylene glycol 3350 350962 mg / potassium chloride 2970 mg / sodium bicarbonate 6740 mg / sodium chloride 5860 mg / sodium sulfate 52007 mg powder for oral solution (2 sources) [...] 12-24-2022 Episodic Other aftercare (1 source) Other rat exterminator (current) drug therapy; Translations: [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 Office Visiton 12-22-2023 Follow-up visit [id number] Julio Black 2005 F Date Provider Department Center 12/22/2023 1596-KIMBERLY CHOWDHURY CARD [facility] Family History Problem Relation Age of Onset Crohn's disease Father Family Status - Relation Status Age at Father Level of Service:12821 MO OFFICE/OUTPATIENT NEW LOW MDM 30 MINUTES Normal [facility] CT ABD/PELVIS WO CONon 02-16 CT [...] by: CHANTerence PETTIT Date: 2023-02-15 23:32 Normal [facility] HCG,Urineon 02-13-2023 Beta HCG ( test) Ql (U) Negative Normal [facility] Comment on above: Result Comment: PERF ORMED BY: [place] [address] PATHOLOGIST BUSINESS DEVELOPMENT DIRECTOR CLARKE LARKIN M.D. Performed By: #### U HCG #### [address] US BREAST BASHIR LIMITEDon 01-16 US BREAST BASHIR LIMITED Patient: JULIO BLACK Exam Date: 02/03/2023 : 2005 Gender:F Ordering : DR MANISHA MONTERO M.D. Admission #: [id number] Family : Order #: [id number] CLICK HERE TO VIEW EXAM RADIOLOGY REPORT [...] Henriquez M.D. on 02/03/2023 at 16:[address] [facility] [address] ABD/PELV W CONon 12-23-19 [...] AREN MCCOLLUM Date: 2022-12-22 22:43 Normal [facility] AMYLASEon 12-22-2022 Amylase [Catalytic activity/Vol] 49 U/L Normal 25-115 [facility] Comment on above: Performed By: #### L IPA, JOHN, CMP ####[facility] [address] [place] [address]DrLiliana Bird CBC AUTO DIFFon 12-22-2022 BASO # 0.1 103/ul Normal 0.0-0.1 [facility] Comment on above: Performed By: #### C BC ####[facility] [address] [place] [id number]. Ronald Bird Basophils/100 WBC (Bld) 0.7 % Normal 0.2-2.0 [facility] Comment on above: Performed By: #### C BC ####[facility] [address] [place] [id number] Bird EO # 0.9 103/ul Critically high 0.0-0.7 [facility] Comment on above: Performed By: #### C BC ####[facility] [address] [place] [id number] Bird Eosinophils/100 WBC (Bld) 8.4 % Critically high 0.9-7.0 [facility] Comment on above: Performed By: #### C BC ####[facility] Jvpwgjrdta[address] [place], [place] [address]Dr. Ronald Pelon Erythrocyte distribution width (RBC) [Ratio] 13.8 % Normal 11.0-15.0 [facility] Comment on above: Performed By: #### C BC ####[facility] Z[address] [place], [place] [address]Dr. Amandazunilda Bird Hematocrit (Bld) [Volume fraction] 40.9 % Normal 36.0-48.0 [facility] Comment on above: Performed By: #### C BC ####[facility] Miedavvbfw[address] [place], [place] [address]Dr. Ronald Bird Hemoglobin (Bld) [Mass/Vol] 12.8 g/dL Normal 12.0-16.0 [facility] Comment on above: Performed By: #### C BC ####[facility] [address]fw[address] [place], [place] [address]Dr. Ronald Bird IG # 0.02 10e3/ul Normal 0.00-0.03 [facility] Comment on above: Performed By: #### C BC ####[facility] Wiwufwdpoy[address] [place], [place] [address]Dr. Ronald Bird IG % 0.2 % Normal 0.0-0.5 [facility] Comment on above: Performed By: #### C BC ####[facility] Cvmfzqsjzd[address] [place], [place] [address]DrLiliana Bird LYMPH # 3.3 103/ul Normal 1.2-3.8 [facility] Comment on above: Performed By: #### C BC ####[facility] Ejfnsvfyuv[address] [place], [place] [address]DrLiliana Bird Lymphocytes/100 WBC (Bld) 31.6 % Normal 20.5-60.0 [facility] Comment on above: Performed By: #### C BC ####[facility] Z[address]xjctz[address] [place], [place] [address]DrLiliana Bird MANUAL DIFF REQ NO Normal [facility] Comment on above: Performed By: #### C BC ####[facility] [address] [place] [address]DrLiliana Bird MCH (RBC) [Entitic mass] 27.8 pg Normal 26.7-34.0 [facility] Comment on above: Performed By: #### C BC ####[facility] Pkmmiyiuwg[address] [place], [place] [address]DrLiliana Bird MCHC (RBC) [Mass/Vol] 31.3 g/dL Normal 29.9-35.2 [facility] Comment on above: Performed By: #### C BC ####[facility] Xzgtvuhade[address] [place], [place] [address]DrLiliana Bird MCV (RBC) [Entitic vol] 88.9 fL Normal 81.0-99.0 [facility] Comment on above: Performed By: #### C BC ####[facility] Hfcw[address]yeux[address] [place], [place] [address]DrLiliana Bird MONO # 1.0 103/ul Critically high 0.3-0.8 [facility] Comment on above: Performed By: #### C BC ####[facility] Tvzrscrm[address] [place], [place] [address]DrLiliana Bird Monocytes/100 WBC (Bld) 9.5 % Normal 1.7-12.0 [facility] Comment on above: Performed By: #### C BC ####[facility] J[address]ufwemgy[address] [place], [place] [address]DrLiliana Bird NEUT # 5.1 103/ul Normal 1.4-6.5 [facility] Comment on above: Performed By: #### C BC ####[facility] [address]fllmjtu[address] [place], [place] [address]DrLiliana Bird Neutrophils/100 WBC (Bld) 49.6 % Normal 43.0-75.0 [facility] Comment on above: Performed By: #### C BC ####[facility] O[address]ax[address] [place], [place] [address]DrLiliana Bird Platelet mean volume (Bld) [Entitic vol] 10.4 fL Normal 9.5-13.5 [facility] Comment on above: Performed By: #### C BC ####[facility] [address] [place] [address]DrLiliana Bird PLT 269 103/ul Normal 150-450 [facility] Comment on above: Performed By: #### C BC ####[facility] [address] [place] [address]DrLiliana Bird RBC 4.60 106/ul Normal 4.20-5.40 [facility] Comment on above: Performed By: #### C BC ####[facility] Mumulaffin[address] [place], [place] [address]DrLiliana Bird WBC 10.3 103/ul Normal 4.0-11.0 [facility] Comment on above: Performed By: #### C BC ####[facility] Ats[address]ix[address]rfq[address] [place], [place] [address]Dr. Ronald Bird ER URINE PROFILEon 3 Bilirubin Ql (U) Negative Normal NEGATIVE [facility] Comment on above: Performed By: #### E RUR #### [facility] [address] [place] [address] Dr. Ronald Bird Clarity (U) CLEAR Normal CLEAR [facility] Comment on above: Performed By: #### E RUR #### [facility] [address] [place] [address] Dr. Ronald Bird Color (U) YELLOW Normal YELLOW [facility] Comment on above: Performed By: #### E RUR #### [facility] [address] [place] [address] Dr. Ronald Bird ERUAHD A micrscopic examination will be performed if indicated. Normal [facility] Comment on above: Performed By: #### E RUR #### [facility] [address] [place] [address] Dr. Ronald Bird Glucose Ql (U) Negative Normal NEGATIVE [facility] Comment on above: Performed By: #### E RUR #### [facility] [address] [place] [address] Dr. Ronald Bird Hemoglobin Ql (U) Negative Normal NEGATIVE [facility] Comment on above: Performed By: #### E RUR #### [facility] [address] [place] [address] Dr. Ronald Bird Ketones Ql (U) Negative Normal NEGATIVE [facility] Comment on above: Performed By: #### E RUR #### [facility] [address] [place] [address] Dr. Ronald Bird LEUKOCYTES Negative Normal NEGATIVE [facility] Comment on above: Performed By: #### E RUR #### [facility] [address] [place] [address] Dr. Ronald Bird Nitrite Ql (U) Negative Normal NEGATIVE [facility] Comment on above: Performed By: #### E RUR #### [facility] [address] [place] [address] Dr. Ronald Bird pH (U) 7.0 [pH] Normal 5-9 [facility] Comment on above: Performed By: #### E RUR #### [facility] [address] [place] [address] Dr. Ronald Bird SPEC GRAVITY 1.020 Normal 1.005-<=1.025 [facility] Comment on above: Performed By: #### E RUR #### [facility] [address] [place] [address] Dr. Ronald Bird UA PROTEIN Negative Normal NEGATIVE/ TRACE [facility] Comment on above: Performed By: #### E RUR #### [facility] [address] [place] [address] Dr. Ronald Bidr UR MICRO IND NOT INDICATED Normal [facility] Comment on above: Performed By: #### E RUR #### [facility] [address] [place] [address] Dr. Ronald Bird Urobilinogen Qn (U) 1.0 {Reese'U}/dL Normal 0.2 - 1.0 [facility] Comment on above: Performed By: #### E RUR #### [facility] [address] [address] [address] Ronald Bird LIPASEon 12-22-2022 Lipase [Catalytic activity/Vol] 76.0 U/L Normal 73.0-393.0 [facility] Comment on above: Performed By: #### L IPA JOHN, CMP ####[facility] [address] [place] [address]Dr. Ronald Bird PROF 14(COMP METB)on 023 Albumin [Mass/Vol] 4.3 g/dL Normal 3.4-5.0 [facility] Comment on above: Performed By: #### L IPA JOHN, CMP #### [facility] [address] [address] [address] Ronald Bird Albumin/Globulin [Mass ratio] 1.2 {ratio} Normal [facility] Comment on above: Performed By: #### L IPA JOHN, CMP #### [facility] [address] [place] [address] Dr. Ronald Bird ALP [Catalytic activity/Vol] 80 U/L Normal 46-116 [facility] Comment on above: Performed By: #### L IPA JOHN, CMP #### [facility] [address] [place] [address] Dr. Ronald Bird ALT [Catalytic activity/Vol] 15 U/L Normal 14-59 [facility] Comment on above: Performed By: #### L IPA JOHN, CMP #### [facility] [address] [address] [address] Ronald Bird Anion gap [Moles/Vol] 15.1 mmol/L Normal [facility] Comment on above: Performed By: #### L IPA JOHN, CMP #### [facility] [address] [address] [address] Ronald Bird AST [Catalytic activity/Vol] 18 U/L Normal 15-37 [facility] Comment on above: Performed By: #### L IPA, JOHN, CMP #### [facility] [address] [address] [address] Ronald Bird Bilirubin [Mass/Vol] 0.2 mg/dL Normal 0.2-1.0 [facility] Comment on above: Performed By: #### L JOHN WISDOM, CMP #### [facility] [address] [address] [address] Ronald Bird Calcium [Mass/Vol] 9.5 mg/dL Normal 8.5-10.1 [facility] Comment on above: Performed By: #### L IPA JOHN, CMP #### [facility] [address] [place] [address] Dr. Ronald Bird Chloride [Moles/Vol] 99 mmol/L Normal 98-107 [facility] Comment on above: Performed By: #### L ARTIS JOHN, CMP #### [facility] [address] [place] [address] Dr. Ronald Bird CO2 [Moles/Vol] 28.4 mmol/L Normal 21.0-32.0 [facility] Comment on above: Performed By: #### L JOHN WISDOM, CMP #### [facility] [address] [place] [address] Dr. Ronald Bird Creatinine [Mass/Vol] 0.63 mg/dL Normal 0.55-1.02 [facility] Comment on above: Performed By: #### L JOHN WISDOM, CMP #### [facility] [address] [place] [address] Dr. Ronald Bird EGFR-AF ALBANIAN >60 Normal >=60 [facility] Comment on above: Performed By: #### L JOHN WISDOM, CMP #### [facility] [address] [place] [address] Dr. Ronald iBrd EGFR-NON AF ALBANIAN >60 Normal >=60 [facility] Comment on above: Performed By: #### L JOHN WISDOM, CMP #### [facility] [address] [place] [address] Dr. Ronald Bird Globulin (S) [Mass/Vol] 3.6 g/dL Normal [facility] Comment on above: Performed By: #### L ARTIS JOHN, CMP #### [facility] [address] [place] [address] Dr. Ronald Bird Glucose [Mass/Vol] 100 mg/dL Normal 74-106 [facility] Comment on above: Performed By: #### L JOHN WISDOM, CMP #### [facility] [address] [place] [address] Dr. Ronald Bird Potassium [Moles/Vol] 3.5 mmol/L Normal 3.5-5.1 [facility] Comment on above: Performed By: #### L JOHN WISDOM, CMP #### [facility] [address] [place] [address] Dr. Ronald Bird Protein [Mass/Vol] 7.9 g/dL Normal 6.4-8.2 [facility] Comment on above: Performed By: #### L JOHN WISDOM, CMP #### [facility] [address] [place] [address] Dr. Ronald Bird Sodium [Moles/Vol] 139 mmol/L Normal 136-145 [facility] Comment on above: Performed By: #### L JOHN WISDOM, CMP #### [facility] [address] [place] [address] Dr. Ronald Bird Urea nitrogen [Mass/Vol] 7.0 mg/dL Normal 6.4-19.3 [facility] Comment on above: Performed By: #### L JOHN WISDOM, CMP #### [facility] [address] [place] [address] Dr. Ronald Bird Urea nitrogen/Creatinin e [Mass ratio] 11.1 mg/mg Normal [facility] Comment on above: Performed By: #### L JOHN WISDOM, CMP #### [facility] [address] [place] [address] Dr. Ronald Bird ECHOCARDIO M/2D COMPLETEon 1 ECHOCARDIO M/2D COMPLETE Patient: GUS JULIO Reynoso Exam Date: 11/15/2022 : 2005 Gender:F Ordering : DR MANISHA MONTERO M.D. Admission #: [id number] Family : Order #: [id number] CLICK HERE TO VIEW EXAM ECHOCARDIOGRAM REPORT [...] Helms M.D. on 11/19/2022 at 10:38 Normal [facility] AMYLASEon 05-21-2022 Amylase [Catalytic activity/Vol] 45 U/L Normal 25-115 [facility] Comment on above: Performed By: #### C JOHN RIOS LIPA #### [facility] [address] [place], [place] [address] Dr. Ronald Bird CBC AUTO DIFFon 05-21-2022 BASO # 0.0 103/ul Normal 0.0-0.1 [facility] Comment on above: Performed By: #### C BC ####[facility] [address] [place] [address]DrLiliana Bird Basophils/100 WBC (Bld) 0.2 % Normal 0.2-2.0 [facility] Comment on above: Performed By: #### C BC ####[facility] [address] [place] [address]DrLiliana Bird EO # 0.2 103/ul Normal 0.0-0.7 [facility] Comment on above: Performed By: #### C BC ####[facility] [address] [place] [address]DrLiliana Bird Eosinophils/100 WBC (Bld) 1.2 % Normal 0.9-7.0 [facility] Comment on above: Performed By: #### C BC ####[facility] [address] [place] [address]DrLiliana Bird Erythrocyte distribution width (RBC) [Ratio] 12.8 % Normal 11.0-15.0 [facility] Comment on above: Performed By: #### C BC ####[facility] [address] [place] [address]DrLiliana Ronald Bird Hematocrit (Bld) [Volume fraction] 39.0 % Normal 36.0-48.0 [facility] Comment on above: Performed By: #### C BC ####[facility] [address] [place] [address]DrLiliana Ronald Bird Hemoglobin (Bld) [Mass/Vol] 13.1 g/dL Normal 12.0-16.0 [facility] Comment on above: Performed By: #### C BC ####[facility] [address] [place] [address]DrLiliana Ronald Bird IG # 0.07 10e3/ul Critically high 0.00-0.[address] [facility] Comment on above: Performed By: #### C BC ####[facility] [address] [place] [address]DrLiliana Ronald Pelon IG % 0.4 % Normal 0.0-0.5 [facility] Comment on above: Performed By: #### C BC ####[facility] [address] [place] [address]DrLiliana Ronald Bird LYMPH # 0.6 103/ul Critically low 1.2-3.8 [facility] Comment on above: Performed By: #### C BC ####[facility] [address] [place] [address]DrLiliana Ronald Pelon Lymphocytes/100 WBC (Bld) 3.6 % Critically low 20.5-60.0 [facility] Comment on above: Performed By: #### C BC ####[facility] [address] [place] [address]DrLiliana Ronald Pelon MANUAL DIFF REQ NO Normal [facility] Comment on above: Performed By: #### C BC ####[facility] [address] [place] [address]DrLiliana Ronald Pelon MCH (RBC) [Entitic mass] 29.1 pg Normal 26.7-34.0 [facility] Comment on above: Performed By: #### C BC ####[facility] [address] [place] [address]Dr. Ronald Bird MCHC (RBC) [Mass/Vol] 33.6 g/dL Normal 29.9-35.2 [facility] Comment on above: Performed By: #### C BC ####[facility] [address] [place] [id number] Ronald Pelon MCV (RBC) [Entitic vol] 86.7 fL Normal 81.0-99.0 [facility] Comment on above: Performed By: #### C BC ####[facility] [address]nbj[address] [place] [address]DrLiliana Bird MONO # 0.9 103/ul Critically high 0.3-0.8 [facility] Comment on above: Performed By: #### C BC ####[facility] [address] [place] [address]Dr. Ronald Bird Monocytes/100 WBC (Bld) 5.3 % Normal 1.7-12.0 [facility] Comment on above: Performed By: #### C BC ####[facility] [address] [place], [place] [address]DrLiliana Patelzunilda Bird NEUT # 15.7 103/ul Critically high 1.4-6.5 [facility] Comment on above: Performed By: #### C BC ####[facility] [address]jspx[address] [place] [id number] Bird Neutrophils/100 WBC (Bld) 89.3 % Critically high 43.0-75.0 [facility] Comment on above: Performed By: #### C BC ####[facility] [address] [place], [place] [address]DrLiliana Bird Platelet mean volume (Bld) [Entitic vol] 10.4 fL Normal 9.5-13.5 [facility] Comment on above: Performed By: #### C BC ####[facility] [address] [place] [phone] Bird PLT 208 103/ul Normal 150-450 [facility] Comment on above: Performed By: #### C BC ####[facility] Vk[address]jmiqos[address] [place], [place] [address]WuDr. Ronald Bird RBC 4.50 106/ul Normal 4.20-5.40 [facility] Comment on above: Performed By: #### C BC ####[facility] Ofhbaezpao9316 [place], [place] [address]LnDr. Ronald Bird WBC 17.5 103/ul Critically high 4.0-11.0 [facility] Comment on above: Performed By: #### C BC ####[facility] N[address]rh[address] [place], [place] [address]DqDr. Ronald Bird Covid-19 PCR (CVDTB)on SARS-CoV-2 (COVID-19) RNA TERRY+probe Ql (Unsp spec) Not detected Normal NOT DETECTED [facility] Comment on above: Result Comment: [...] for this test is supported by the [employer] of Health and Human Service's declaration that [...] used). Performed By: #### C VDTBH #### [facility] [address] [place], [place] [address] Dr. Ronald Bird ER URINE PROFILEon 2 Bilirubin Ql (U) Negative Normal NEGATIVE [facility] Comment on above: Performed By: #### E RUR ####[facility] [address] [place], [place] [address]VrDr. Ronald Bird Clarity (U) CLEAR Normal CLEAR [facility] Comment on above: Performed By: #### E RUR ####[facility] A[address] [place], [place] [address]Dr. Ronald Bird Color (U) LT. YELLOW Normal YELLOW [facility] Comment on above: Performed By: #### E RUR ####[facility] [address]up[address] [place], [place] [address]Dr. Ronald Bird ERUAHD A micrscopic examination will be performed if indicated. Normal [facility] Comment on above: Performed By: #### E RUR ####[facility] [address] [place], [place] [address]Dr. Ronald Bird Glucose Ql (U) Negative Normal NEGATIVE [facility] Comment on above: Performed By: #### E RUR ####[facility] Celkbbbzgs[address] [place], [place] [address]Dr. Ronald Bird Hemoglobin Ql (U) Negative Normal NEGATIVE [facility] Comment on above: Performed By: #### E RUR ####[facility] Ihsphphrxk[address] [place], [place] [address]Dr. Ronald Bird Ketones Ql (U) Negative Normal NEGATIVE [facility] Comment on above: Performed By: #### E RUR ####[facility] [address]jhqv[address] [place], [place] [address]Dr. Ronald Bird LEUKOCYTES Negative Normal NEGATIVE [facility] Comment on above: Performed By: #### E RUR ####[facility] [address]vpt[address] [place], [place] [address]Dr. Ronald Bird Nitrite Ql (U) Negative Normal NEGATIVE [facility] Comment on above: Performed By: #### E RUR ####[facility] Yq[address]eeg[address] [place], [place] [address]Dr. Ronald Bird pH (U) 7.0 [pH] Normal 5-9 [facility] Comment on above: Performed By: #### E RUR ####[facility] [address] [place], [place] [address]Dr. oRnald Bird SPEC GRAVITY <=1.005 Abnormal 1.005-<=1.025 [facility] Comment on above: Performed By: #### E RUR ####[facility] [address] [place], [place] [address]Dr. Amandazunilda Bird UA PROTEIN Negative Normal NEGATIVE/ TRACE [facility] Comment on above: Performed By: #### E RUR ####[facility] [address] [place], [place] [address]Dr. Ronald Bird UR MICRO IND NOT INDICATED Normal [facility] Comment on above: Performed By: #### E RUR ####[facility] Izroihwf[address] [place], [place] [address]Dr. Ronald Bird Urobilinogen Qn (U) 0.2 {Reese'U}/dL Normal 0.2 - 1.0 [facility] Comment on above: Performed By: #### E RUR ####[facility] [address] [place], [place] [address]Dr. Ronald Bird GROUP A STREP CULTUREon S. pyogenes Ag Ql (Unsp spec) Culture Observations: NEGATIVE FOR GROUP A STREPTOCOCCUS. Normal [facility] Comment on above: Performed By: #### S SCRN GRASTCX ####[facility] [address] [place], [place] [address]Dr. Ronald Bird INFLUENZA A AND B AGon 05-21 INFLUENZA A AG Negative Normal NEGATIVE SEE COMMENT [facility] Comment on above: Performed By: #### I NFLUAB ####[facility] [address] [place], [place] [address]Dr. Ronald Ibrd INFLUENZA B AG Negative Normal NEGATIVE SEE COMMENT [facility] Comment on above: Performed By: #### I NFLUAB ####[facility] K[address] [place], [place] [address]Dr. Ronald Bird INFLUPOSH SEE BELOW Normal [facility] Comment on above: Result Comment: NOTE : Live attenuated influenzae vaccine viruses can cause a positive result for a rapid influenza diagnostic test if administered up to 7 days prior to rapid testing. Performed By: #### I NFLUAB ####[facility] [address] [address]Dr. Ronald Bird INFLUPOSHB SEE BELOW Normal [facility] Comment on above: Result Comment: NOTE : Live attenuated influenzae vaccine viruses can cause a positive result for a rapid influenza diagnostic test if administered up to 7 days prior to rapid testing. Performed By: #### I NFLUAB ####[facility] [address] [address]DrLiliana Bird INTERNAL CONTROLS Within Normal Limits Normal Wi thin Normal Limits [facility] Comment on above: Performed By: #### I NFLUAB ####[facility] [address] [address]Dr. Ronald Bird LIPASEon 05-21-2022 Lipase [Catalytic activity/Vol] 62.0 U/L Critically low 73.0-393.0 [facility] Comment on above: Performed By: #### C JOHN RIOS LIPA #### [facility] [address] [place] [address] Dr. Ronald Bird PROF 14(COMP METB)on 022 Albumin [Mass/Vol] 4.1 g/dL Normal 3.4-5.0 [facility] Comment on above: Performed By: #### C JOHN RIOS LIPA #### [facility] [address] [place] [address] Dr. Ronald Bird Albumin/Globulin [Mass ratio] 1.2 {ratio} Normal [facility] Comment on above: Performed By: #### C JOHN RIOS, LIPA #### [facility] [address] [place] [address] Dr. Ronald Bird ALP [Catalytic activity/Vol] 74 U/L Normal 46-116 [facility] Comment on above: Performed By: #### C JOHN RIOS, LIPA #### [facility] [address] [place] [address] Dr. Ronald Bird ALT [Catalytic activity/Vol] 60 U/L Critically high 14-59 [facility] Comment on above: Performed By: #### C JOHN RIOS, LIPA #### [facility] [address] [place] [address] Dr. Ronald Bird Anion gap [Moles/Vol] 13.4 mmol/L Normal [facility] Comment on above: Performed By: #### C JOHN RIOS LIPA #### [facility] [address] [address] [address] Ronald Bird AST [Catalytic activity/Vol] 46 U/L Critically high 15-37 [facility] Comment on above: Performed By: #### C JOHN RIOS LIPA #### [facility] [address] [address] [address] Ronald Bird Bilirubin [Mass/Vol] 0.6 mg/dL Normal 0.2-1.0 [facility] Comment on above: Performed By: #### C JOHN RIOS LIPA #### [facility] [address] [address] [address] Ronald Bird Calcium [Mass/Vol] 9.3 mg/dL Normal 8.5-10.1 [facility] Comment on above: Performed By: #### C JOHN RIOS, LIPA #### [facility] [address] [address] [address] Ronald Bird Chloride [Moles/Vol] 100 mmol/L Normal 98-107 [facility] Comment on above: Performed By: #### C JOHN RIOS, LIPA #### [facility] [address] [address] [address] Ronald Bird CO2 [Moles/Vol] 24.9 mmol/L Normal 21.0-32.0 [facility] Comment on above: Performed By: #### C JOHN RIOS, LIPA #### [facility] [address] [address] [address] Ronald Bird Creatinine [Mass/Vol] 0.71 mg/dL Normal 0.55-1.02 [facility] Comment on above: Performed By: #### C JOHN RIOS, LIPA #### [facility] [address] [address] [address] Ronald Bird EGFR-AF ALBANIAN >60 Normal >=60 [facility] Comment on above: Performed By: #### C JOHN RIOS LIPA #### [facility] [address] [address] [address] Ronald Bird EGFR-NON AF ALBANIAN >60 Normal >=60 [facility] Comment on above: Performed By: #### C MP, JOHN, LIPA #### [facility] [address] [address] [address] Ronald Bird Globulin (S) [Mass/Vol] 3.5 g/dL Normal [facility] Comment on above: Performed By: #### C MP, JOHN, LIPA #### [facility] [address] [address] [address] Ronald Bird Glucose [Mass/Vol] 109 mg/dL Critically high 74-106 [facility] Comment on above: Performed By: #### C MP, JOHN, LIPA #### [facility] [address] [place] [address] Dr. Ronald Bird Potassium [Moles/Vol] 3.3 mmol/L Critically low 3.5-5.1 [facility] Comment on above: Performed By: #### C MP, JOHN,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
--- NOTE | 2024-03-11 18:33 | ED_ITS ---
HPI - Wound/Laceration General Chief Complaint: Wound/Laceration Stated Complaint: Suture Removal Time Seen by Provider: 03/11/24 18:18 Source: patient Mode of arrival: walk-in Limitations: no limitations History of Present Illness HPI narrative: 19-year-old female presents to the emergency department for reevaluation of wound to her right wrist. Injured it about 10 days ago while trying to pry open an Xbox with a screwdriver. A piece inside the Xbox was metallic, sharp, causing the injury. Patient worried because there is some redness and swelling to the wound. + Mild tenderness. Denies fever, drainage. Patient is right- handed. Quality:?Penetrating trauma Severity:?Mild Timing:?10 days Context: Normal setting and activity? Modifying factors:?Pain worse with palpation Associated symptoms: As above Related Data Home Medications ?Medication ?Instructions ?Recorded ?Confirmed fluticasone propionate 115 inhalation 02/04/24 mcg-salmeterol 21 mcg/actuation HFA inhaler Allergies Allergy/AdvReac Type Severity Reaction Status Date / Time No Known Drug Allergies Allergy Verified 02/04/24 23:31 Review of Systems ROS Narrative CONST: Denies diaphoresis, weakness MS: Denies arthralgias, myalgias SKIN:? +wound.? Denies swelling NEURO: Denies weakness, numbness, paresthesias Exam Narrative Exam Narrative: Vital signs noted Nurses notes reviewed CONST: Nontoxic, well appearing, well nourished, in no distress.? No diaphoresis.?? HENT: normocephalic, atraumatic, CV: 2+ palpable right radial pulse MS: Right wrist: She has 2 cm laceration to the volar aspect of the wrist. Sutures in place. Mild swelling surrounding the sutures. No drainage. No lymphangitic streaking. No wound dehiscence. No ecchymosis, crepitus, deformity, instability, warmth.? ROM full flexion extension.? Strength 5/5 NEURO: Sensory intact throughout and distal to the injury SKIN: + laceration PSYCHIATRIC: normal mood, affect Constitutional Vital Signs, click to edit/add: Last Vital Signs Temp 98.1 F 03/11/24 18:11 Pulse 62 03/11/24 18:11 Resp 18 03/11/24 18:11 BP 122/67 03/11/24 18:11 Pulse Ox 97 03/11/24 18:11 O2 Del Method Room Air 03/11/24 18:11 Course Vital Signs Vital signs: Vital Signs Temperature 98.1 F 03/11/24 18:11 Pulse Rate 62 03/11/24 18:11 Respiratory Rate 18 03/11/24 18:11 Blood Pressure 122/67 03/11/24 18:11 Pulse Oximetry 97 03/11/24 18:11 Oxygen Delivery Method Room Air 03/11/24 18:11 Temperature 98.1 F 03/11/24 18:11 Pulse Rate 62 03/11/24 18:11 Respiratory Rate 18 03/11/24 18:11 Blood Pressure 122/67 03/11/24 18:11 Pulse Oximetry 97 03/11/24 18:11 Oxygen Delivery Method Room Air 03/11/24 18:11 MDM - Wound/Laceration MDM Narrative Medical decision making narrative: This is a pleasant 19-year-old female who presented to the emergency department with concern about wound to her right wrist. Cut herself 10 days ago, sutures h ave been in place. She reports some pain, tenderness. She does express some concern about infection. Denies any fever, drainage. On arrival, afebrile, vital signs are stable. On exam, nontoxic and well-appearing patient in no distress. She has 2 cm laceration to the volar aspect of her right wrist. Sutures are in place. There is some mild inflammatory changes, redness, swelling surrounding the wound. No lymphangitic streaking. No drainage coming from the wound. Range of motion full. MSPs intact. Nursing removed # 5 sutures. No evidence of wound dehiscence after removal. Bacitracin dressing was applied. On reevaluation, patient may be at risk for developing keloid. This was discussed with patient. Patient advised to continue applying antibiotic ointment, monitoring and to follow-up with her provider. Disposition ? The patient was discharged. Plan: Patient will be discharged to home. Condition at time of disposition: stable and improved ? Advised to follow up with primary provider. Advised to return for any worsening and/or development of new, concerning signs or symptoms PLEASE NOTE: Portions of the medical record may have been produced using electronic dust collector ore crushing and may contain errors with respect to translation of words which may not have been identified prior to finalization of the chart. Discharge Plan Discharge Stand Alone Forms: Portal Instructions Chief Complaint: Wound/Laceration Clinical Impression: Encounter for removal of sutures Laceration of right wrist Qualifiers: Encounter type: subsequent encounter Qualified Code(s): S61.511D - Laceration without foreign body of right wrist, subsequent encounter Patient Disposition: Home, Self-Care Time of Disposition Decision: 18:18 Condition: Good Mode of Transportation: Private Vehicle Prescriptions / Home Meds: No Action fluticasone propion-salmeterol 115-21 mcg/actuation HFA aerosol inhaler INHALATION Print Language: Setswana Instructions: Stitches Removal (ED) Referrals: Manisha Small MD [Primary Care Provider] - 1 week
[2024-03-11] MEDS: BACITRACIN 0.9 GM PACKET 1 PACKET TOPICAL (18:56)
== END 2024-03-11 18:58 | disposition home or self-care (01) ==
PROVIDERS: Emergency Provider Internal Medicine; PCP Family Medicine
DX: S61.511D Laceration without foreign body of right wrist, subsequent encounter (principal); W26.8XXD Contact with other sharp object(s), not elsewhere classified, subsequent encounter
CPT/HCPCS: 99282